=== PATIENT | female | born 1960 | race Caucasian/White ===

== ENCOUNTER 2016-04-04 17:49 | Emergency (ER) | payer BC ==
[2016-04-04 18:52] VITALS: BP 128/79
--- NOTE | 2016-04-04 19:36 | UC ---
Throat Pain/Nasal Petey HPI - HPI Summary HPI Summary: 55 year old female with complaints of headache, sinus pain and pressure stuffy runny nose, and cough. Denies fever or chills. Hx of sinus infections 1 - 2 a year She has stopped taking her methotrexate for RA when she became ill 5 days ago - History of Current Complaint Chief Complaint: UCRespiratory Stated Complaint: POSSIBLE SINUS INFECTION Time Seen by Provider: 04/04/16 19:21 Hx Obtained From: Patient ?: No Onset/Duration: Gradual Onset, Lasting Days - 5-6, Worse Since - last 2 days Severity: Moderate Cough: Nonproductive Associated Signs & Symptoms: Positive: Dysphagia, Sinus Discomfort, Nasal Discharge, Fever. Negative: FB Sensation, Drooling, Wheezing, Hoarseness, Vomiting, Rash - Epiglottits Risk Factors Epiglottis Risk Factors: Negative - Allergies/Home Medications Allergies/Adverse Reactions: Allergies Allergy/AdvReac Type Severity Reaction Status Date / Time No Known Allergies Allergy Verified 04/04/16 18:51 Home Medications: Home Medications Solifenacin(NF) [Vesicare(NF)] 5 mg PO DAILY 04/04/16 [History Confirmed ] PMH/Surg Hx/FS Hx/Imm Hx Previously Healthy: Yes Endocrine History Of: Denies: Diabetes Cardiovascular History Of: Denies: Cardiac Disorders Respiratory History Of: Denies: Asthma Cancer History Of: Denies: Breast Cancer - Surgical History Surgical History: None - Family History Known Family History: Positive: Hypertension Negative: Diabetes - Social History Occupation: Employed Full-time Lives: With Family Alcohol Use: None Substance Use Type: None Smoking Status (MU): Former Smoker Have You Smoked in the Last Year: No When Did the Patient Quit Smoking/Using Tobacco: 34 years ago Review of Systems Constitutional: Negative Skin: Negative Eyes: Negative ENT: Nasal Discharge, Other - sinus pain and pressure Respiratory: Cough Cardiovascular: Negative Gastrointestinal: Negative Genitourinary: Negative Motor: Negative Neurovascular: Negative Musculoskeletal: Negative Neurological: Headache Psychological: Negative All Other Systems Reviewed And Are Negative: Yes Physical Exam Triage Information Reviewed: Yes Appearance: No Pain Distress, Well-Nourished, Ill-Appearing - moderately Vital Signs: Initial Vital Signs Temp 97.9 F 04/04/16 18:49 Pulse 83 04/04/16 18:49 Resp 16 04/04/16 18:49 BP 128/79 04/04/16 18:49 Pulse Ox 99 04/04/16 18:49 Vital Signs Reviewed: Yes Eyes: Positive: Conjunctiva Clear. Negative: Discharge ENT: Positive: Hearing grossly normal, Pharynx normal, Nasal congestion, Nasal drainage - thick white, TMs normal, Other: - Moderate maxillary sinus pain and pressure with palpation. Negative: Tonsillar swelling Neck: Positive: Supple, Nontender, No Lymphadenopathy Respiratory: Positive: Lungs clear, Normal breath sounds Cardiovascular: Positive: RRR, No Murmur Musculoskeletal: Positive: Strength Intact, ROM Intact Neurological: Positive: Alert, Muscle Tone Normal Psychological: Positive: Age Appropriate Behavior - pleasant and cooperative Skin: Negative: rashes, breakdown Throat Pain/Nasal Course/Dx - Differential Dx/Diagnosis Differential Diagnosis/HQI/PQRI: Pharyngitis, Sinusitis, URI Provider Diagnoses: Sinusitis Discharge - Discharge Plan Condition: Stable Disposition: HOME Prescriptions: Amoxicillin/Clavulanate TAB* [Augmentin TAB 875*] 875 mg PO BID #20 tab Patient Education Materials: Sinusitis (ED) Additional Instructions: Follow up with your doctor if you are not feeling much better in 7 days
== END 2016-04-04 19:44 | disposition home or self-care (01) ==
LOC: UCCORT 17:49
DX: J32.9 Chronic sinusitis, unspecified (principal); Z87.891 Personal history of nicotine dependence
CPT/HCPCS: 99212; G0463

== ENCOUNTER 2017-11-12 09:10 | Emergency (ER) | payer BC ==
--- OUTSIDE RECORDS SUMMARY | 2017-11-12 09:28 | XMS REPORT ---
:1960 Author Organization [facility] O[facility] Address [address] [place] [address] Care Team Providers Name Role Phone Kathy Hernandez Unavailable Unavailable PROBLEMS Type Condition ICD9-CM Code [id number] Onset Condition SNOMED Code Code Dates Status Problem Postmenopausal N95.0 Active 07045206 bleeding Problem Unspecified urinary R32 Active 272960968 incontinence Problem Rheumatoid M05.9 Active 01722826 arthritis with rheumatoid factor, unspecified Problem Uterovaginal N81.4 Active 34645591 prolapse, unspecified Problem Anal spasm K59.4 Active 98043799 ALLERGIES Substance Reaction Event Type Date Status Myrbetriq hives Drug Allergy Oct, Active penicillin yeast infections Drug Allergy Oct, Active ENCOUNTERS Encounter [facility] Nov, OBGYN [place], [place] [id number] [facility] [address], [facility] [id number] [facility] 103 Oct, [facility] N95.0 [place], [place] [id number] [facility] 103 Oct, Postmenopausal bleeding OBGYN [facility] N95.0 [place], [place] [id number] [facility] 103 Sep, OBGYN [place] [id number] [facility] 103 Sep, Encounter for gynecological OBGYN [facility] examination (general) [place], [place] [id number] (routine) without abnormal findings Z01.419 ; Unspecified urinary incontinence R32 ; Encounter for screening for malignant neoplasm of colon Z12.11 and Postmenopausal bleeding N95.0 [facility] 103 Aug, Unspecified urinary OBGYN [facility] incontinence R32 [place], [place] [id number] [facility] 103 Aug, Encounter for screening OBGYN [facility] mammogram for malignant [place], [place] [id number] neoplasm of breast Z12.31 [facility] 103 13 May, 2017 OBGYN [place], [place] [id number] [facility] 103 May, Frequency of micturition OBGYN [facility] R35.0 ; Other specified [place], [place] [id number] noninflammatory disorders of vagina N89.8 and Uterovaginal prolapse, unspecified N81.4 [facility] 103 Sep, Encounter for gynecological OBGYN [facility] examination (general) [place], [place] [id number] (routine) without abnormal findings Z01.419 ; Unspecified urinary incontinence R32 ; Encounter for screening mammogram for malignant neoplasm of breast Z12.31 and Encounter for screening for malignant neoplasm of colon Z12.11 [facility] 103 Apr, Unspecified urinary OBGYN [facility] incontinence [address] [place] [id number] [facility] 103 Feb, Unspecified urinary OBGYN [facility] incontinence [address] [id number] [facility] 103 Jan, Unspecified urinary OBGYN [facility] incontinence [address] [place] [id number] [facility] 103 Jan, [place]BGYN [place] [id number] [facility] 103 Jan, [place] [id number] [facility] 103 Dec, Unspecified urinary OBGYN [facility] incontinence [address] [id number] [facility] 103 10 Dec, [address] [facility] incontinence R32 [place], [place] [id number] [facility] 103 Dec, [place]BG[place], [place] [id number] [facility] 103 Sep, Unspecified urinary OBGYN [facility] incontinence R32 [place] [id number] [facility] 103 Sep, Unspecified urinary OBGYN [facility] incontinence R32 and [place], [place] [id number] Disorder of kidney and ureter, unspecified N28.9 [facility] 103 Aug, Encounter for gynecological OBGYN [facility] examination (general) [place], [place] [id number] (routine) with abnormal findings Z01.411 ; Encounter for screening for malignant neoplasm of cervix Z12.4 ; Encounter for screening mammogram for malignant neoplasm of breast Z12.31 ; Encounter for screening for malignant neoplasm of colon Z12.11 ; Unspecified urinary incontinence R32 and Uterovaginal prolapse, unspecified N81.4 [facility] 103 Apr, OBG[place] [id number] [facility] 103 Apr, Dysuria R30.0 [place] [id number] [facility] 103 Dec, [place] [id number] [facility] 103 Nov, Encounter for gynecological OBGYN [facility] examination (general) [place], [place] [id number] (routine) without abnormal findings Z01.419 [facility] 103 Nov, Other abnormal [facility] inconclusive findings on [place], [place] [id number] diagnostic imaging of breast R92.8 [facility] 103 14 Oct, 2014 PELVIC PAIN 625.9 [facility] Vulvitis NOS 616.10 [place], [place] [id number] [facility] 103 Aug, AB FINDINGS-BREAST NEC [facility] 793.89 [place] [id number] [facility] 103 Aug, [place] [id number] [facility] 103 Aug, ROUTINE RIDING COACH EXAMINATION OBGYN [facility] V72.31 ; PAP SMEAR W/O RIDING COACH [place], [place] [id number] EXAM V76.2 ; SCREEN MALIG NEOP-COLON V76.51 ; SCREEN MAMMOGRAM NEC V76.12 and Incontinence 788.[address] [place] Aug, [facility] [address] [place] [id number] [facility] 103 Aug, [place] [id number] [facility] [address] [place] [address] [place] Jul, Incontinence 788.[address] [facility] [address] [place] [id number] [facility] 103 Jan, [place]BGYN [place] [id number] [facility] 103 Jan, Cystocele, midline 618.01 [place] [id number] [facility] 103 Dec, [place] [id number] [facility] 103 Dec, [place] [id number] [facility] [address] [place] Nov, Cystocele, midline 618.[address] [facility] [facility] [address] [place] [address], and Second degree uterine [place] [id number] prolapse 618.1 [facility] 103 Oct, [place], [place] [id number] [facility] 103 Oct, [place] [id number] [facility] 103 Sep, Dysuria [address]88.[address] [facility] degree uterine prolapse [place], [place] [id number] 618.1 [facility] 103 Sep, [place] [id number] [facility] 103 Sep, [place] [id number] [facility] 103 Sep, Urinary tract infection NOS OBGYN [facility] 599.0 [place] [id number] [facility] 103 Aug, [place] [id number] [facility] 103 Aug, [place] [id number] [facility] 103 Aug, URINARY INCONTINENCE NOS OBGYN [facility] 788.30 ; Cystocele, midline [place], [place] [id number] 618.01 and Second degree uterine prolapse 618.1 [facility] 103 Aug, [facility]INARY INCONTINENCE NOS [facility] 788.30 ; Cystocele, midline [place], [place] [id number] 618.01 and Second degree uterine prolapse 618.1 [facility] 103 Aug, FEM STRESS INCONTINENCE OBGYN [facility] 625.6 [place] [id number] [facility] 103 Jul, URINARY INCONTINENCE NOS OBGYN [facility] 788.30 [place], [place] [id number] [facility] 103 Jul, ROUTINE RIDING COACH EXAMINATION OBGYN [facility] V72.31 ; PAP SMEAR W/O RIDING COACH [place], [place] [id number] EXAM V76.2 ; SCREEN MALIG NEOP-COLON V76.51 ; SCREEN MAMMOGRAM NEC V76.12 and Incontinence 788.30 [facility] 103 Feb, [place]BG[place] [id number] [facility] 103 Feb, Flushing 782.62 [place]YN [place], [place] [id number] [facility] 103 Feb, [place] [id number] [facility] 103 Jan, [place] [id number] [facility] 103 Jan, [place] [id number] [facility] 103 Jan, [place] [id number] [facility] Oct, [place] [id number] [facility] 103 Jul, ROUTINE RIDING COACH EXAMINATION OBGYN [facility] V72.31 ; PAP SMEAR W/O RIDING COACH [place], [place] [id number] EXAM V76.2 and SCREEN MAMMOGRAM NEC V76.12 [facility] 103 Jul, PELVIC PAIN 625.9 ; ABN OBGYN 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 FINDINGS- ORGANS 793.5 [place] [id number] [facility] 103 Apr, [place]BGYN [place] [id number] [facility] 103 Mar, OBGYN [place], [place] [id number] [facility] 103 Mar, [place] [id number] [facility] 103 15 Mar, 2012 PELVIC PAIN 625.9 ; ABN OBGYN 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 FINDINGS- ORGANS 793.5 [place] [id number] [facility] 103 Mar, PELVIC PAIN 625.9 [place], [place] [id number] [facility] 103 Jul, [place], [place] [id number] [facility] 103 Jul, ROUTINE RIDING COACH EXAMINATION OBGYN [facility] V72.31 ; PAP SMEAR W/O RIDING COACH [place], [place] [id number] EXAM V76.2 and SCREEN MALIG NEOP-COLON V76.51 [facility] 103 Jul, [place] [id number] [facility] 103 June, [place] [id number] [facility] 103 May, [place] [id number] [facility] 103 May, [place] [id number] [facility] 103 Apr, [place] [id number] [facility] 103 Apr, OBG[place] [id number] [facility] 103 Apr, Cystocele NOS w/o mention [facility] of uterine prolapse 618.01 [place], [place] [id number] ; Premenstrual syndrome 625.4 and Urinary urgency 788.63 [facility] 103 Feb, [place] [id number] [facility] 103 Feb, [place] [id number] [facility] 103 Feb, [place] [id number] [facility] 103 Jan, PELVIC PAIN 625.9 and [facility] Premenstrual syndrome 625.4 [place], [place] [id number] [facility] 103 Jan, [place] [id number] [facility] 103 Jan, PELVIC PAIN 625.9 and [facility] Premenstrual syndrome 625.4 [place], [place] [id number] [facility] 103 Jan, [place] [id number] [facility] 103 Nov, VAGINAL DISCHARGE 623.5 and [facility] 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 [place], [place] [id number] [facility] 103 Jul, ROUTINE RIDING COACH EXAMINATION [facility] V72.31 [place] [id number] [facility] 103 May, [place] [id number] [facility] 103 Dec, [place] [id number] [facility] 103 Oct, [place] [id number] [facility] 103 Jul, [place] [id number] [facility] 103 Jul, ROUTINE RIDING COACH EXAMINATION [facility] V72.31 ; CERVICAL [place], [place] [id number] DYSPLASIA, MILD (SERAFIN I) 622.11 ; Urinary urgency 788.63 and Premenstrual syndrome 625.4 [facility] 103 May, OBN [place] [id number] [facility] 103 May, URINARY INCONTINENCE NOS [facility] 788.30 and CONTRACEPT PILL [place], [place] [id number] SURVEILL V25.41 [facility] 103 Mar, Urinary frequency 788.[address] [facility] and Hematuria, unspecified [place], [place] [id number] 599.70 [facility] 103 Jan, [place] [id number] [facility] 103 Dec, CERVICAL DYSPLASIA, MILD [facility] (SERAFIN I) 622.11 ; Urinary [place], [place] [id number] urgency 788.63 and Premenstrual syndrome 625.4 [facility] 103 Oct, [place] [id number] [facility] 103 Aug, Vaginitis NOS 616.10 [place] [id number] [facility] 103 Aug, [place] [id number] [facility] 103 Jul, [place] [id number] [facility] 103 Jul, CERVICAL DYSPLASIA, MILD [facility] (SERAFIN I) 622.11 and Urinary [place], [place] [id number] urgency 788.63 [facility] 103 Jul, PAP SMEAR CERVIX W LGSIL [facility] 795.03 [place] [id number] [facility] 103 June, CERVICAL DYSPLASIA, MILD [facility] (SERAFIN I) 622.11 [place] [id number] [facility] 103 May, [place], [place] [id number] [facility] 103 Mar, ROUTINE RIDING COACH EXAMINATION [facility] V72.31 ; CERVICAL [place], [place] [id number] DYSPLASIA, MILD (SERAFIN I) 622.11 and Urinary urgency 788.63 [facility] 103 Dec, CERVICAL DYSPLASIA, MILD [facility] (SERAFIN I) 622.11 ; PELVIC [place], [place] [id number] PAIN 625.9 ; Urinary urgency 788.63 and 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63 [facility] 103 24 Jul, 2007 Ovarian cyst NOS 620.2 ; [facility] CERVICAL DYSPLASIA, MILD [place] [id number] (SERAFIN I) 622.11 and Premenstrual syndrome 625.4 [facility] 103 Jul, PELVIC PAIN 625.9 and [facility] Ovarian cyst NOS 620.2 [place], [place] [id number] [facility] 103 28 Jun, 2007 OBG[place] [id number] [facility] 103 June, [place] [id number] [facility] 103 30 May, 2007 PELVIC PAIN 625.9 ; OBGYN [facility] Menometrorrhagia 626.2 ; [place], [place] [id number] Ovarian cyst NOS 620.2 and CERVICAL DYSPLASIA, MILD (SERAFIN I) 622.11 [facility] 103 14 May, 2007 Ovarian cyst NOS 620.2 [facility] PELVIC PAIN 625.9 [place] [id number] [facility] 103 08 May, 2007 Mild dysplasia of cervix [facility] 622.11 and Ovarian cyst NOS [place], [place] [id number] 620.2 [facility] 103 04 Mar, 2007 Menometrorrhagia 626.2 and [facility] CERVICAL DYSPLASIA, MILD [place], [place] [id number] (SERAFIN I) 622.11 [facility] [address] [place], 17 Feb, 2007 [facility] [id number] [facility] 103 16 Feb, 2007 PELVIC PAIN 625.[address] [facility] Ovarian cyst NOS 620.2 [place], [place] [id number] [facility] 103 15 Feb, 2007 Menometrorrhagia 626.2 and [facility] PELVIC PAIN 625.9 [place] [id number] [facility] 103 13 Dec, 2006 Lichen simplex chronicus [facility] 698.3 [place], [place] [id number] [facility] 103 Dec, [place] [id number] [facility] 103 Dec, [facility]rh[address]ia 626.[address] CERVICAL DYSPLASIA, MILD [place], [place] [id number] (SERAFIN I) 622.11 [facility] 103 Nov, Menometrorrhagia 626.2 and [facility] ABN FINDINGS- ORGANS [place], [place] [id number] 793.5 [facility] 103 Nov, ABN FINDINGS- ORGANS [facility] 793.5 ; Menometrorrhagia [place], [place] [id number] 626.2 and PELVIC PAIN 625.9 [facility] 103 Nov, Menometrorrhagia 626.2 [place] [id number] [facility] 103 Nov, [place] [id number] [facility] 103 Nov, Ovarian cyst NOS 620.2 ; [facility] Menometrorrhagia 626.2 and [place], [place] [id number] PELVIC PAIN 625.9 [place] [facility] 103 Nov, CERVICAL DYSPLASIA, MILD [facility] (SERAFIN I) 622.11 [place], [place] [id number] [facility] 103 Oct, PELVIC PAIN 625.9 ; Mild [facility] dysplasia of cervix 622.11 [place], [place] [id number] ; Ovarian cyst NOS 620.2 ; Menometrorrhagia 626.2 and Pruritus of genital organs 698.1 [facility] 103 Aug, Telangiectasia, [facility] telangiectasis 448.9 [place] [id number] [facility] 103 June, Telangiectasia, [facility] telangiectasis 448.9 [place], [place] [id number] [facility] 103 May, Telangiectasia, [facility] telangiectasis 448.9 [place], [place] [id number] [facility] 103 Apr, Cervical dysplasia, mild OBGYN [facility] 622.11 [place], [place] [id number] [facility] 103 Apr, Telangiectasia, OBGYN [facility] telangiectasis 448.9 [place], [place] [id number] [facility] 103 13 Apr, 2006 PAP SMEAR ABN-(ASC-H ) OBGYN [facility] 795.02 [place] [id number] [facility] 103 16 Mar, 2006 ROUTINE RIDING COACH EXAMINATION OBGYN [facility] V72.31 [place], [place] [id number] [facility] 103 Sep, PELVIC PAIN 625.9 OBGYN [place] [id number] [facility] 103 Sep, PELVIC PAIN 625.9 and Cyst OBGYN [facility] fallopian tube 620.8 [place], [place] [id number] [facility] 103 Aug, OBGYN [place] [id number] [facility] 103 Aug, PELVIC PAIN 625.9 and Cyst OBGYN [facility] fallopian tube 620.8 [place], [place] [id number] [facility] 103 Aug, PELVIC PAIN 625.9 OBGYN [place] [id number] [facility] 103 Aug, PELVIC PAIN 625.9 [place] [id number] [facility] 103 Aug, PELVIC PAIN 625.9 OBGYN [place], [place] [id number] [facility] 103 Jul, PELVIC PAIN 625.9 OBGYN [place], [place] [id number] IMMUNIZATIONS No Known Immunizations SOCIAL HISTORY Never Assessed REASON FOR REFERRAL FUNCTIONAL STATUS PLAN OF CARE Activity Details Follow Up Needs US prior to surgery, As scheduled Reason: Pending Test URINE CULTURE Pending Test UA RFX MICRO & CULTURE II VITAL SIGNS Height 66 in 2017-10-23 Weight 148 lbs 2017-10-23 BMI 23.89 kg/m2 2017-10-23 Blood pressure systolic 122 mm Hg 2017-10-23 Blood pressure diastolic 70 mm Hg 2017-10-23 MEDICATIONS Medication Instructions Dosage Frequency Start End Duration Status Date Date methotrexate 2.5 orally once a week 8 tab(s) 30 day(s) Active mg Cytotec 200 mcg orally 1 tab at 1 tab(s) Oct, Active dinner night 2018 before procedure, 1 tab at bedtime night before procedure, 1 tab at 6 AM day of procedure folic acid 1 mg orally once a day 1 tab(s) 24h 30 day(s) Active Humira Pen 40 subcutaneously 0 mL 30 day(s) Active mg/0.8 mL every 2 weeks VESIcare 5 mg orally once a day 1 tab(s) 24h 30 day(s) Active PROCEDURES No Known procedures RESULTS No Results REASON FOR VISIT presurgical counseling Insurance Providers [employer] Member Patient Patient Patient Patient Patient Subscriber Subscriber Subscriber Group Insurance Plan Plan Plan Plan ID Relationship Address Phone Name Date of ID Name Date of No Type Insurance Insurance Insurance Coverage to Subscriber Address Phone Name Dates Cigna [phone] [employer] self [place] [id number] [facility] [address] [place] [address] [place] self [place] [id number] [place] [id number] [phone] [facility] self [place] [id number] [place] [address] [facility] [address] [place] [phone] [employer] self [place] [id number] [place] [phone] MEDICAL (GENERAL) HISTORY Type Description Date Medical History One Kidney (right) Medical History RA Surgical History BTL Surgical History hysteroscopy, D&C, polypectomy, Thermachoice 03/06/07 Surgical History laparoscopic ELICIA and ovarian cystectomy 08/23 Surgical History US guided hysteroscopy/D&C 04-30-12 Surgical History colonoscopy 10/2013 Hospitalization History childbirth
--- OUTSIDE RECORDS SUMMARY | 2017-11-12 09:28 | XMS REPORT ---
:[address] [facility] O[facility] Address [address] [place] [address] Care Team Providers Name Role Phone Paul Echavarria Unavailable Unavailable PROBLEMS Type Condition ICD9-CM Code ZKY93-PM Onset Condition SNOMED Code Code Dates Status Problem Stricture and N88.2 Active 11698997 stenosis of cervix uteri Problem Postmenopausal N95.0 Active 46732086 bleeding Problem Anal spasm K59.4 Active 98690511 Problem Rheumatoid M05.9 Active 30064379 arthritis with rheumatoid factor, unspecified Problem Unspecified urinary R32 Active 932486315 incontinence Problem Uterovaginal N81.4 Active 18314502 prolapse, unspecified ALLERGIES No Information ENCOUNTERS Encounter Location Date Diagnosis [facility] Nov, OBGYN [place] [id number] [facility] [address], Oct, Postmenopausal bleeding Medical [facility] [id number] N95.0 and Stricture and stenosis of cervix uteri N88.2 [facility] Oct, Postmenopausal bleeding OBGYN [facility] N95.0 [place] [id number] [facility] 103 Oct, [facility] N95.0 [place] [id number] [facility] Sep, O[place], [place] [id number] [facility] 103 Sep, Encounter for gynecological OBGYN [facility] examination (general) [place], [place] [id number] (routine) without abnormal findings Z01.419 ; Unspecified urinary incontinence R32 ; Encounter for screening for malignant neoplasm of colon Z12.11 and Postmenopausal bleeding N95.0 [facility] Aug, Unspecified urinary OBGYN [facility] incontinence R32 [place], [place] [id number] [facility] 103 Aug, Encounter for screening OBGYN [facility] mammogram for malignant [place], [place] [id number] neoplasm of breast Z12.31 [facility] 103 May, OBG[place] [id number] [facility] 103 May, Frequency of micturition OBGYN [facility] R35.0 ; Other specified [place], [place] [id number] noninflammatory disorders of vagina N89.8 and Uterovaginal prolapse, unspecified N81.4 [facility] 103 Sep, Encounter for gynecological OBGYN [facility] examination (general) [place], [place] [id number] (routine) without abnormal findings Z01.419 ; Unspecified urinary incontinence R32 ; Encounter for screening mammogram for malignant neoplasm of breast Z12.31 and Encounter for screening for malignant neoplasm of colon Z12.11 [facility] Apr, Unspecified urinary OBGYN [facility] incontinence [address] [place] [id number] [facility] 103 Feb, Unspecified urinary OBGYN [facility] incontinence [address] [id number] [facility] 103 Jan, Unspecified urinary OBGYN [facility] incontinence [address] [place] [id number] [facility] 103 Jan, [place]BGYN [place] [id number] [facility] Jan, [place] [id number] [facility] 103 Dec, Unspecified urinary OBGYN [facility] incontinence R32 [place], [place] [id number] [facility] 103 10 Dec, 2015 Unspecified urinary OBGYN [facility] incontinence R32 [place], [place] [id number] [facility] 103 Dec, [place] [id number] [facility] 103 Sep, Unspecified urinary OBGYN [facility] incontinence R32 [place] [id number] [facility] 103 Sep, Unspecified urinary OBGYN [facility] incontinence R32 and [place], [place] [id number] Disorder of kidney and ureter, unspecified N28.9 [facility] 103 Aug, Encounter for gynecological OBGYN [facility] examination (general) [place], [place] [id number] (routine) with abnormal findings Z01.411 ; Encounter for screening for malignant neoplasm of cervix Z12.4 ; Encounter for screening mammogram for malignant neoplasm of breast Z12.31 ; Encounter for screening for malignant neoplasm of colon Z12.11 ; Unspecified urinary incontinence R32 and Uterovaginal prolapse, unspecified N81.4 [facility] Apr, [place] [id number] [facility] 103 Apr, Dysuria R30.0 [place] [id number] [facility] 103 Dec, [place] [id number] [facility] 103 Nov, Encounter for gynecological OBGYN [facility] examination (general) [place], [place] [id number] (routine) without abnormal findings Z01.419 [facility] 103 Nov, Other abnormal and [facility] inconclusive findings on [place], [place] [id number] diagnostic imaging of breast R92.8 [facility] 103 14 Oct, 2014 PELVIC PAIN 625.9 and OBGYN [facility] Vulvitis NOS 616.10 [place], [place] [id number] [facility] Aug, AB F[facility]INGS-BREAST NEC [facility] 793.89 [place], [place] [id number] [facility] 103 Aug, [place] [id number] [facility] 103 Aug, ROUTINE BULK SUGAR HANDLER EXAMINATION [facility] V72.31 ; PAP SMEAR W/O BULK SUGAR HANDLER [place], [place] [id number] EXAM V76.2 ; SCREEN MALIG NEOP-COLON V76.51 ; SCREEN MAMMOGRAM NEC V76.12 and Incontinence 788.[address] Aug, [facility] [address] [place], [place] [id number] [facility] 103 Aug, [place] [id number] [facility] Jul, Incontinence [address] [place], [place] [id number] [facility] Jan, [place] [id number] [facility] 103 Jan, Cystocele, midline 618.01 [place] [id number] [facility] 103 Dec, [place] [id number] [facility] 103 Dec, [place] [address] [facility] Nov, Cystocele, midline [address] [place] [address], and Second degree uterine [place] [id number] prolapse 618.1 [facility] 103 16 Oct, 2013 [place] [id number] [facility] 103 Oct, [place] [id number] [facility] 103 Sep, Dysuria 788.1 and Second OBGYN [facility] degree uterine prolapse [place], [place] [address] 618.1 [facility] 103 Sep, [place], [place] [id number] [facility] 103 Sep, [place] [address] [facility] 103 Sep, Urinary tract infection NOS OBGYN [facility] 599.0 [place] [id number] [facility] 103 Aug, [place] [id number] [facility] Aug, [place] [id number] [facility] 103 Aug, URINARY INCONTINENCE NOS OBGYN [facility] 788.30 ; Cystocele, midline [place], [place] [id number] 618.01 and Second degree uterine prolapse 618.1 [facility] 103 Aug, URINARY INCONTINENCE NOS [facility] 788.30 ; Cystocele, midline [place], [place] [id number] 618.01 and Second degree uterine prolapse 618.1 [facility] 103 Aug, FEM STRESS INCONTINENCE OBGYN [facility] 625.6 [place], [place] [id number] [facility] 103 Jul, URINARY INCONTINENCE NOS OBGYN [facility] 788.30 [place], [place] [id number] [facility] 103 Jul, ROUTINE BULK SUGAR HANDLER EXAMINATION OBGYN [facility] V72.31 ; PAP SMEAR W/O BULK SUGAR HANDLER [place], [place] [id number] EXAM V76.2 ; SCREEN MALIG NEOP-COLON V76.51 ; SCREEN MAMMOGRAM NEC V76.12 and Incontinence 788.30 [facility] 103 Feb, [place] [id number] [facility] Feb, Flushing 782.62 O[place]YN [place] [id number] [facility] 103 Feb, [place]BG[place] [address] [facility] 103 Jan, [place] [id number] [facility] 103 Jan, [place] [id number] [facility] 103 Jan, OBGYN [place], [place] [id number] [facility] 103 Oct, OBG[place] [id number] [facility] 103 Jul, ROUTINE BULK SUGAR HANDLER EXAMINATION OBGYN [facility] V72.31 ; PAP SMEAR W/O BULK SUGAR HANDLER [place], [place] [id number] EXAM V76.2 and SCREEN MAMMOGRAM NEC V76.12 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 [facility] [address] [place], Apr, [facility] [id number] [facility] 103 Apr, PELVIC PAIN 625.9 and ABN OBGYN [facility] FINDINGS- ORGANS 793.5 [place], [place] [id number] [facility] 103 Apr, [place] [address] [facility] 103 24 Mar, 2012 [place] [id number] [facility] 103 Mar, [place] [id number] [facility] 103 15 Mar, 2012 PELVIC PAIN 625.9 ; ABN OBGYN [facility] FINDINGS- ORGANS 793.5 [place], [place] [address] and 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 [facility] 103 12 Mar, 2012 PELVIC PAIN 625.9 and ABN OBGYN [facility] FINDINGS- ORGANS 793.5 [place], [place] [id number] [facility] 103 Mar, PELVIC PAIN 625.9 [place] [address] [facility] 103 Jul, [place] [address] [facility] 103 Jul, ROUTINE BULK SUGAR HANDLER EXAMINATION OBGYN [facility] V72.31 ; PAP SMEAR W/O BULK SUGAR HANDLER [place] [id number] EXAM V76.2 and SCREEN MALIG NEOP-COLON V76.51 [facility] Jul, [place] [id number] [facility] 103 June, [place] [id number] [facility] 103 May, [place] [address] [facility] 103 May, [place] [id number] [facility] 103 Apr, [place] [address] [facility] 103 Apr, [place] [address] [facility] 103 Apr, Cystocele NOS w/o mention [facility] of uterine prolapse 618.01 [place], [place] [id number] ; Premenstrual syndrome 625.4 and Urinary urgency 788.63 [facility] Feb, [place] [id number] [facility] Feb, [place] [address] [facility] Feb, [place] [address] [facility] 103 Jan, PELVIC PAIN 625.9 [facility] Premenstrual syndrome 625.4 [place], [place] [id number] [facility] Jan, [place] [address] [facility] 103 Jan, PELVIC PAIN 625.9 and OBGYN [facility] Premenstrual syndrome 625.4 [place], [place] [address] [facility] Jan, [place] [id number] [facility] 103 Nov, VAGINAL DISCHARGE 623.5 and [facility] 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 [place], [place] [id number] [facility] 103 Jul, ROUTINE BULK SUGAR HANDLER EXAMINATION [facility] V72.31 [place], [place] [id number] [facility] May, [place] [address] [facility] 103 Dec, [place] [id number] [facility] Oct, [place] [id number] [facility] Jul, [place] [id number] [facility] 103 Jul, ROUTINE BULK SUGAR HANDLER EXAMINATION [facility] V72.31 ; CERVICAL [place], [place] [id number] DYSPLASIA, MILD (SERAFIN I) 622.11 ; Urinary urgency 788.63 and Premenstrual syndrome 625.4 [facility] 103 May, [place] [id number] [facility] May, URINARY INCONTINENCE NOS OBGYN [facility] 788.30 and CONTRACEPT PILL [place], [place] [id number] SURVEILL V25.41 [facility] 103 Mar, Urinary frequency 788.41 OBN [facility] and Hematuria, unspecified [place], [place] [address] 599.70 [facility] 103 Jan, [place] [id number] [facility] 103 Dec, CERVICAL DYSPLASIA, MILD [facility] (SERAFIN I) 622.11 ; Urinary [place], [place] [id number] urgency 788.63 and Premenstrual syndrome 625.4 [facility] 103 Oct, [place] [id number] [facility] 103 Aug, Vaginitis NOS 616.10 [place] [id number] [facility] Aug, [place] [id number] [facility] Jul, [place] [id number] [facility] 103 Jul, CERVICAL DYSPLASIA, MILD [facility] (SERAFIN I) 622.11 and Urinary [place], [place] [id number] urgency 788.63 [facility] 103 Jul, PAP SMEAR CERVIX W LGSIL [facility] 795.03 [place], [place] [id number] [facility] 103 June, CERVICAL DYSPLASIA, MILD [facility] (SERAFIN I) 622.11 [place], [place] [id number] [facility] May, [place] [id number] [facility] 103 Mar, ROUTINE BULK SUGAR HANDLER EXAMINATION [facility] V72.31 ; CERVICAL [place], [place] [id number] DYSPLASIA, MILD (SERAFIN I) 622.11 and Urinary urgency 788.63 [facility] Dec, CERVICAL DYSPLASIA, MILD [facility] (SERAFIN I) 622.11 ; PELVIC [place], [place] [id number] PAIN 625.9 ; Urinary urgency 788.63 and 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 [facility] 103 Dec, [place] [id number] [facility] 10 Dec, 2007 PELVIC PAIN 625.9 [place] [id number] [facility] 04 Dec, 2007 CERVICAL DYSPLASIA, MILD [facility] (SERAFIN I) 622.11 ; PELVIC [place], [place] [id number] PAIN 625.9 and Urinary urgency 788.63 [facility] 103 15 Nov, 2007 CERVICAL DYSPLASIA, MILD OBN [facility] (SERAFIN I) 622.11 ; [place], [place] [id number] Premenstrual syndrome 625.4 and Urinary urgency 788.63 [facility] 103 24 Jul, 2007 Ovarian cyst NOS 620.2 ; [facility] CERVICAL DYSPLASIA, MILD [place], [place] [id number] (SERAFIN I) 622.11 and Premenstrual syndrome 625.4 [facility] 103 18 Jul, 2007 PELVIC PAIN 625.9 and OBGYN [facility] Ovarian cyst NOS 620.2 [place], [place] [id number] [facility] 103 June, [place] [id number] [facility] 103 June, [place] [id number] [facility] 103 May, PELVIC PAIN 625.9 ; OBGYN [facility] Menometrorrhagia 626.2 ; [place], [place] [id number] Ovarian cyst NOS 620.2 and CERVICAL DYSPLASIA, MILD (SERAFIN I) 622.11 [facility] 14 May, 2007 Ovarian cyst NOS 620.2 and OBGYN [facility] PELVIC PAIN 625.9 [place], [place] [id number] [facility] 103 May, Mild dysplasia [facility]ix [facility] 622.11 and Ovarian cyst NOS [place], [place] [id number] 620.2 [facility] 103 04 Mar, 2007 Menometrorrhagia 626.2 and OBGYN [facility] CERVICAL DYSPLASIA, MILD [place], [place] [id number] (SERAFIN I) 622.11 [facility] [address] [place], Feb, Medical [facility] [id number] [facility] 16 Feb, 2007 PELVIC PAIN 625.9 and OBGYN [facility] Ovarian cyst NOS 620.2 [place], [place] [id number] [facility] 103 15 Feb, 2007 Menometrorrhagia 626.2 and OBGYN [facility] PELVIC PAIN 625.9 [place], [place] [id number] [facility] 103 13 Dec, 2006 Lichen simplex chronicus OBGYN [facility] 698.3 [place], [place] [id number] [facility] 103 12 Dec, 2006 [place] [id number] [facility] 103 05 Dec, 2007 Menometrorrhagia 626.2 and [facility] CERVICAL DYSPLASIA, MILD [place], [place] [id number] (SERAFIN I) 622.11 [facility] 103 Nov, Menometrorrhagia 626.2 and OBGYN [facility] ABN FINDINGS- ORGANS [place], [place] [id number] 793.5 [facility] 103 Nov, ABN FINDINGS- ORGANS [facility] 793.5 ; Menometrorrhagia [place], [place] [id number] 626.2 and PELVIC PAIN 625.9 [facility] 103 Nov, Menometrorrhagia 626.2 [place] [id number] [facility] 103 Nov, [place] [id number] [facility] 103 Nov, Ovarian cyst NOS 620.2 ; [facility] Menometrorrhagia 626.2 and [place], [place] [id number] PELVIC PAIN 625.9 [facility] 103 Nov, CERVICAL DYSPLASIA, MILD [facility] (SERAFIN I) 622.11 [place], [place] [id number] [facility] 103 Oct, PELVIC PAIN 625.9 ; Mild [facility] dysplasia of cervix 622.11 [place], [place] [id number] ; Ovarian cyst NOS 620.2 ; Menometrorrhagia 626.2 and Pruritus of genital organs 698.1 [facility] 103 Aug, Telangiectasia, [facility] telangiectasis 448.9 [place], [place] [id number] [facility] 103 June, Telangiectasia, [facility] telangiectasis 448.9 [place], [place] [id number] [facility] 103 May, Telangiectasia, [facility] telangiectasis 448.9 [place], [place] [id number] [facility] 103 27 Apr, 2006 Cervical dysplasia, mild OBGYN [facility] 622.11 [place], [place] [id number] [facility] 103 Apr, Telangiectasia, OBGYN [facility] telangiectasis 448.9 [place], [place] [id number] [facility] 103 13 Apr, 2006 PAP SMEAR ABN-(ASC-H ) OBGYN [facility] 795.02 [place], [place] [id number] [facility] 103 16 Mar, 2006 ROUTINE BULK SUGAR HANDLER EXAMINATION OBN [facility] V72.31 [place], [place] [id number] [facility] 103 Sep, PELVIC PAIN 625.9 OBN [place] [id number] [facility] 103 Sep, PELVIC PAIN 625.9 and Cyst OBGYN [facility] fallopian tube 620.8 [place], [place] [id number] [facility] 103 Aug, [place] [id number] [facility] 103 Aug, PELVIC PAIN 625.9 and Cyst OBGYN [facility] fallopian tube 620.8 [place], [place] [id number] [facility] 103 Aug, PELVIC PAIN 625.9 OBG[place] [id number] [facility] 103 Aug, PELVIC PAIN 625.9 [place] [id number] [facility] 103 Aug, PELVIC PAIN 625.9 O[place] 6273926[address] [facility] 103 Jul, PELVIC PAIN 625.9 [place] [id number] IMMUNIZATIONS No Known Immunizations SOCIAL HISTORY Never Assessed REASON FOR REFERRAL FUNCTIONAL STATUS PLAN OF CARE VITAL SIGNS MEDICATIONS Unknown Medications PROCEDURES Procedure Date Ordered Result Body Site HYSTEROSCOPY, BIOPSY Oct 29, 2017 PARACERVICAL BLOCK Oct 29, 2017 US EXAM, PELVIC, LIMITED Oct 29, 2017 US GUIDE, INTRAOP Oct 29, 2017 RESULTS No Results REASON FOR VISIT US-guided Hysteroscopy & D+C Insurance Providers [facility] Health Member Patient Patient Patient Patient Patient Subscriber Subscriber Subscriber Group Insurance Plan Plan Plan Plan ID Relationship Address Phone Name Date of ID Name Date of No Type Insurance Insurance Insurance Coverage to Subscriber Address Phone Name Dates [place] [phone] [employer] self [place] [id number] [facility] [address] [place] [address] [employer] [phone] [employer] self [place]et[place] [id number] [address] [facility] [address] [place] [phone] [employer] self [place] [id number] [address] [facility] [phone] [facility] self [place]etria [id number] [place] [address] [facility] [id number] MEDICAL (GENERAL) HISTORY Type Description Date Medical History One Kidney (right) Medical History RA Surgical History BTL Surgical History hysteroscopy, D&C, polypectomy, Thermachoice 03/06/07 Surgical History laparoscopic ELICIA and ovarian cystectomy 08/23 Surgical History US guided hysteroscopy/D&C 04-30-12 Surgical History colonoscopy 10/2013 Hospitalization History childbirth
--- OUTSIDE RECORDS SUMMARY | 2017-11-12 09:28 | XMS REPORT ---
:1960 Author Name sound, ultra Care Team Providers Name Role Phone sound, ultra Unavailable Unavailable PROBLEMS Type Condition ICD9-CM Code [id number] Onset Condition SNOMED Code Code Dates Status Problem Stricture and N88.2 Active 64332014 stenosis of cervix uteri Problem Postmenopausal N95.0 Active 21792947 bleeding Problem Anal spasm K59.4 Active 57244069 Problem Rheumatoid M05.9 Active 61991706 arthritis with rheumatoid factor, unspecified Problem Unspecified urinary R32 Active 931106664 incontinence Problem Uterovaginal N81.4 Active 02902718 prolapse, unspecified ALLERGIES No Information ENCOUNTERS Encounter Location Date Diagnosis Formerly [facility] Nov, [place] [id number] [facility] [address], Postmenopausal bleeding [facility] [id number] N95.0 and Stricture and stenosis of cervix uteri N88.2 [facility] Oct, [facility] N[facility]0 [place] [id number] [facility] Oct, Postmenopausal bleeding OBGYN [facility] N95.0 [place], [place] [id number] [facility] Sep, [place] [id number] [facility] Sep, Encounter for gynecological OBGYN [facility] examination (general) [place], [place] [id number] (routine) without abnormal findings Z01.419 ; Unspecified urinary incontinence R32 ; Encounter for screening for malignant neoplasm of colon Z12.11 and Postmenopausal bleeding N95.0 [facility] Aug, Unspecified urinary OBGYN [facility] incontinence R32 [place] [id number] [place] [facility] Aug, Encounter for screening OBGYN [facility] mammogram for malignant [place], [place] [id number] neoplasm of breast Z12.31 [place] [facility] 13 May, 2017 [place] [id number] [place] [facility] May, Frequency of micturition OBGYN [facility] R35.0 ; Other specified [place], [place] [id number] noninflammatory disorders of vagina N89.8 and Uterovaginal prolapse, unspecified N81.4 [place] [facility] Sep, Encounter for gynecological OBGYN [facility] examination (general) [place], [place] [id number] (routine) without abnormal findings Z01.419 ; Unspecified urinary incontinence R32 ; Encounter for screening mammogram for malignant neoplasm of breast Z12.31 and Encounter for screening for malignant neoplasm of colon Z12.11 [place] [facility] Apr, Unspecified urinary OBGYN [facility] incontinence [address] [id number] [place] [facility] Feb, Unspecified urinary OBGYN [facility] incontinence [address] [id number] [place] [facility] Jan, Unspecified urinary OBGYN [facility] incontinence [address] [id number] [place] [facility] Jan, [place] [id number] [place] [facility] Jan, [place] [id number] [place] [facility] Dec, Unspecified urinary OBGYN [facility] incontinence [address] [id number] [place] [facility] Dec, Unspecified urinary OBGYN [facility] incontinence R32 [place] [id number] [place] [facility] Dec, [place] [id number] [place] [facility] Sep, Unspecified urinary OBGYN [facility] incontinence R32 [place] [id number] [place] [facility] Sep, Unspecified urinary OBGYN [facility] incontinence R32 and [place] [id number] Disorder of kidney and ureter, unspecified N28.9 [place] [facility] Aug, [facility] [place] [id number] (routine) with abnormal findings Z01.411 ; Encounter for screening for malignant neoplasm of cervix Z12.4 ; Encounter for screening mammogram for malignant neoplasm of breast Z12.31 ; Encounter for screening for malignant neoplasm of colon Z12.11 ; Unspecified urinary incontinence R32 and Uterovaginal prolapse, unspecified N81.4 [place] [facility] Apr, [place] [id number] [place] [facility] Apr, Dysuria R30.0 [place] [id number] [place] [facility] Dec, [place] [id number] [place] [facility] Nov, Encounter for gynecological OBGYN [facility] examination (general) [place], [place] [id number] (routine) without abnormal findings Z01.419 [place] [facility] Nov, Other abnormal [facility] findings on [place] [id number] diagnostic imaging of breast R92.8 [place] [facility] 14 Oct, 2014 PELVIC PAIN 625.[address] [facility] Vulvitis NOS 616.10 [place] [id number] [place] [facility] Aug, AB FINDINGS-BREAST NEC OBGYN [facility] 793.89 [place] [id number] [place] [facility] Aug, [place] [id number] [place] [facility] Aug, ROUTINE SUPERVISOR UNLOADING EXAMINATION OBGYN [facility] V72.31 ; PAP SMEAR W/O SUPERVISOR UNLOADING [place], [place] [id number] EXAM V76.2 ; SCREEN MALIG NEOP-COLON V76.51 ; SCREEN MAMMOGRAM NEC V76.12 and Incontinence 788.30 [place] [address] [place] [facility], [address] [place] [id number] [facility] Aug, [place] [id number] [facility] Jul, [facility]ence 788.30 [facility] [address] [place] [id number] [facility] Jan, [place] [id number] [place] [facility] Jan, Cystocele, midline 618.01 [place] [id number] [place] [facility] Dec, [place] [id number] [place] [facility] Dec, [place] [id number] [facility] [place] [facility] Nov, Cystocele, midline [address] [place] [address], and Second degree uterine [place] [id number] prolapse 618.1 [place] [facility] Oct, [place], [place] [id number] [place] [facility] Oct, [place] [id number] [place] [facility] Sep, Dysuria 788.[address] [facility] degree uterine prolapse [place] [id number] 618.1 [place] [facility] Sep, [place], [place] [id number] [place] [facility] Sep, [place] [id number] [place] [facility] Sep, Urinary tract infection NOS OBGYN [facility] 599.0 [place] [id number] [place] [facility] Aug, [place] [id number] [place] [facility] Aug, [place] [id number] [place] [facility] Aug, URINARY INCONTINENCE NOS OBGYN [facility] 788.30 ; Cystocele, midline [place], [place] [id number] 618.01 and Second degree uterine prolapse 618.1 [place] [facility] Aug, URINARY INCONTINENCE NOS [facility] 788.30 ; Cystocele, midline [place], [place] [id number] 618.01 and Second degree uterine prolapse 618.1 [place] [facility] Aug, FEM STRESS INCONTINENCE OBGYN [facility] 625.6 [place] [id number] [place] [facility] Jul, URINARY INCONTINENCE NOS OBGYN [facility] 788.30 [place] [id number] [place] [facility] Jul, ROUTINE SUPERVISOR UNLOADING EXAMINATION OBN [facility] V72.31 ; PAP SMEAR W/O SUPERVISOR UNLOADING [place], [place] [id number] EXAM V76.2 ; SCREEN MALIG NEOP-COLON V76.51 ; SCREEN MAMMOGRAM NEC V76.12 and Incontinence 788.30 [place] [facility] Feb, [place] [id number] [place] [facility] Feb, Flushing 782.62 [place] [id number] [place] [facility] Feb, [place], [place] [id number] [facility] Jan, [place], [place] [id number] [facility] Jan, [place] [id number] [facility] Jan, [place], [place] [id number] [facility] Oct, [place] [id number] [facility] Jul, ROUTINE SUPERVISOR UNLOADING EXAMINATION OBGYN [facility] V72.31 ; PAP SMEAR W/O SUPERVISOR UNLOADING [place], [place] [id number] EXAM V76.2 and SCREEN MAMMOGRAM NEC V76.12 [facility] Jul, PELVIC PAIN 625.9 ; ABN OBGYN 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 FINDINGS- ORGANS 793.5 [place] [id number] [facility] Apr, [place] [id number] [facility] Mar, [place] [id number] [place] [facility] 18 Mar, 2012 [place] [id number] [place] [facility] 15 Mar, 2012 PELVIC PAIN 625.9 ; ABN OBGYN 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 FINDINGS- ORGANS 793.5 [place] [id number] [place] [facility] 11 Mar, 2012 PELVIC PAIN 625.9 [place] [id number] [place] [facility] Jul, [place] [id number] [place] [facility] Jul, ROUTINE SUPERVISOR UNLOADING EXAMINATION OBGYN [facility] V72.31 ; PAP SMEAR W/O SUPERVISOR UNLOADING [place], [place] [id number] EXAM V76.2 and SCREEN MALIG NEOP-COLON V76.51 [place] [facility] Jul, [place] [id number] [place] [facility] June, [place] [id number] [place] [facility] May, [place] [id number] [place] [facility] May, [place] [id number] [place] [facility] Apr, [place] [id number] [place] [facility] Apr, [place] [id number] [place] [facility] Apr, Cystocele NOS w/o mention OBGYN [facility] of uterine prolapse 618.01 [place] [id number] ; Premenstrual syndrome 625.4 and Urinary urgency 788.63 [place] [facility] Feb, [place] [id number] [place] [facility] Feb, [place] [address] [place] [facility] Feb, [place] [id number] [place] [facility] Jan, PELVIC PAIN 625.9 [facility] Premenstrual syndrome 625.4 [place] [id number] [place] [facility] Jan, [place] [id number] [place] [facility] Jan, PELVIC PAIN 625.9 and [facility] Premenstrual syndrome 625.4 [place] [id number] [place] [facility] Jan, [place] [id number] [place] [facility] Nov, VAGINAL DISCHARGE 623.5 and [facility] 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 [place] [id number] [place] [facility] Jul, ROUTINE SUPERVISOR UNLOADING EXAMINATION [facility] V72.31 [place] [id number] [place] [facility] May, [place] [id number] [place] [facility] Dec, [place] [id number] [place] [facility] Oct, [place] [id number] [place] [facility] Jul, [place] [id number] [place] [facility] Jul, ROUTINE SUPERVISOR UNLOADING EXAMINATION [facility] V72.31 ; CERVICAL [place], [place] [id number] DYSPLASIA, MILD (SERAFIN I) 622.11 ; Urinary urgency 788.63 and Premenstrual syndrome 625.4 [place] [facility] May, [place] [id number] [place] [facility] May, URINARY INCONTINENCE NOS OBGYN [facility] 788.30 and CONTRACEPT PILL [place], [place] [id number] SURVEILL V25.41 [place] [facility] Mar, Urinary frequency 788.[address] [facility] and Hematuria, unspecified [place] [id number] 599.70 [place] [facility] Jan, [place] [id number] [place] [facility] Dec, CERVICAL DYSPLASIA, MILD [facility] (SERAFIN I) 622.11 ; Urinary [place] [id number] urgency 788.63 and Premenstrual syndrome 625.4 [place] [facility] Oct, [place] [id number] [place] [facility] Aug, Vaginitis NOS 616.10 [place], [place] [id number] [place] [facility] Aug, [place] [id number] [place] [facility] Jul, [place] [id number] [place] [facility] Jul, CERVICAL DYSPLASIA, MILD [facility] (SERAFIN I) 622.11 and Urinary [place] [id number] urgency 788.63 [place] [facility] Jul, PAP SMEAR CERVIX W LGSIL [facility] 795.03 [place] [id number] [place] [facility] June, CERVICAL DYSPLASIA, MILD [facility] (SERAFIN I) 622.11 [place] [id number] [place] [facility] May, [place] [id number] [place] [facility] Mar, ROUTINE SUPERVISOR UNLOADING EXAMINATION [facility] V72.31 ; CERVICAL [place] [id number] DYSPLASIA, MILD (SERAFIN I) 622.11 and Urinary urgency 788.63 [place] [facility] Dec, CERVICAL DYSPLASIA, MILD [facility] (SERAFIN I) 622.11 ; P[place]VIC [place] [id number] PAIN 625.9 ; Urinary urgency 788.63 and 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 (SERAFIN I) 622.11 ; [place] [id number] Premenstrual syndrome 625.4 and Urinary urgency 788.63 [place] [facility] Jul, Ovarian cyst NOS 620.2 ; [facility] CERVICAL DYSPLASIA, MILD [place] [id number] (SERAFIN I) 622.11 and Premenstrual syndrome 625.4 [place] [facility] 18 Jul, 2007 PELVIC PAIN 625.9 and [facility] Ovarian cyst NOS 620.2 [place] [id number] [place] [facility] 28 Jun, 2007 [place] [id number] [place] [facility] June, [place] [id number] [place] [facility] 30 May, 2007 PELVIC PAIN 625.9 ; OBGYN [facility] Menometrorrhagia 626.2 ; [place] [id number] Ovarian cyst NOS 620.2 and CERVICAL DYSPLASIA, MILD (SERAFIN I) 622.11 [place] [facility] 14 May, 2007 Ovarian cyst NOS 620.2 [facility] PELVIC PAIN 625.9 [place] [id number] [place] [facility] 08 May, 2007 Mild dysplasia of cervix [facility] 622.11 and Ovarian cyst NOS [place], [place] [id number] 620.2 [place] [facility] 04 Mar, 2007 Menometrorrhagia 626.[address] [facility] CERVICAL DYSPLASIA, MILD [place] [id number] (SERAFIN I) 622.11 [facility] [address] [place], 17 Feb, 2007 [facility] [id number] [facility] 16 Feb, 2007 PELVIC PAIN 625.9 and [facility] Ovarian cyst NOS 620.2 [place] [id number] [place] [facility] 15 Feb, 2007 Menometrorrhagia 626.2 and [facility] PELVIC PAIN 625.9 [place] [id number] [place] [facility] Dec, Lichen simplex chronicus [facility] 698.3 [place] [id number] [place] [facility] Dec, [place] [id number] [place] [facility] Dec, Menometrorrhagia 626.[address] [facility] CERVICAL DYSPLASIA, MILD [place] [id number] (SERAFIN I) 622.11 [place] [facility] Nov, Menometrorrhagia 626.[address] [facility] ABN FINDINGS- ORGANS [place] [id number] 793.5 [place] [facility] Nov, ABN FINDINGS- ORGANS [facility] 793.5 ; Menometrorrhagia [place] [id number] 626.2 and PELVIC PAIN 625.9 [place] [facility] Nov, Menometrorrhagia 626.2 [place] [id number] [place] [facility] Nov, [place] [id number] [facility] Nov, Ovarian cyst NOS 620.2 ; [facility] Menometrorrhagia 626.2 and [place] [id number] PELVIC PAIN 625.9 [facility] Nov, CERVICAL DYSPLASIA, MILD [facility] (SERAFIN I) 622.11 [place], [place] [id number] [facility] Oct, PELVIC PAIN 625.9 ; Mild [facility] dysplasia of cervix 622.11 [place], [place] [id number] ; Ovarian cyst NOS 620.2 ; Menometrorrhagia 626.2 and Pruritus of genital organs 698.1 [place] [facility] Aug, Telangiectasia, [facility] telangiectasis 448.9 [place] [id number] [place] [facility] June, Telangiectasia, [facility] telangiectasis 448.9 [place] [id number] [place] [facility] May, Telangiectasia, [facility] telangiectasis 448.9 [place], [place] [id number] [place] [facility] Apr, Cervical dysplasia, mild O[facility] [place] [address] 622.11 [place] [id number] [place] [facility] Apr, Telangiectasia, OBGYN [facility] telangiectasis 448.9 [place], [place] [id number] [place] [facility] Apr, PAP SMEAR ABN-(ASC-H ) [facility] 795.02 [place] [id number] [facility] Mar, ROUTINE SUPERVISOR UNLOADING EXAMINATION [facility] V72.31 [place] [id number] [place] [facility] Sep, PELVIC PAIN 625.9 O[place] [id number] [facility] Sep, PELVIC PAIN 625.9 and Cyst OBN [facility] fallopian tube 620.8 [place] [id number] [place] [facility] Aug, [place] [id number] [facility] Aug, PELVIC PAIN 625.9 and Cyst OBN [facility] fallopian tube 620.8 [place] [id number] [place] [facility] Aug, PELVIC PAIN 625.9 [place] [id number] [place] [facility] Aug, PELVIC PAIN 625.9 [place] [id number] [place] [facility] Aug, PELVIC PAIN 625.9 [place] [id number] [place] [facility] Jul, PELVIC PAIN 625.9 [place] [id number] IMMUNIZATIONS No Known Immunizations SOCIAL HISTORY Never Assessed REASON FOR REFERRAL FUNCTIONAL STATUS PLAN OF CARE VITAL SIGNS MEDICATIONS Unknown Medications PROCEDURES Procedure Date Ordered Result Body Site TRANSVAGINAL US, NON-OB Oct 23, 2017 RESULTS Name Result Date Reference Range Ultrasound : Pelvis REASON FOR VISIT pelvic US Insurance Providers [facility] Member Patient Patient Patient Patient Patient Subscriber Subscriber Subscriber Group Insurance Plan Plan Plan Plan ID Relationship Address Phone Name Date of ID Name Date of No Type Insurance Insurance Insurance Coverage to Subscriber Address Phone Name Dates [place] [phone] [place] [id number] [facility] [address] [place] [address] [facility] [address] [address] [facility] self [place] [id number] [place] [address] [facility] [address] [employer] [address] [employer] self [place] [id number] [facility] [address] [place] [phone] [place] self [place] [id number] [facility] [address] [place] [phone] MEDICAL (GENERAL) HISTORY Type Description Date Medical History One Kidney (right) Medical History RA Surgical History BTL Surgical History hysteroscopy, D&C, polypectomy, Thermachoice 03/06/07 Surgical History laparoscopic ELICIA and ovarian cystectomy 08/23 Surgical History US guided hysteroscopy/D&C 04-30-12 Surgical History colonoscopy 10/2013 Hospitalization History childbirth
--- OUTSIDE RECORDS SUMMARY | 2017-11-12 09:28 | XMS REPORT | Continuity of Care Document ---
:1960 Author Organization [facility] Address [address], [place] [id number] Phone Care Team Providers Name Role Phone Roopa Potter PA-C Unavailable Unavailable Allergies, Adverse Reactions, Alerts Substance Reaction Status penicillin G Active No Known Drug Allergies Active Medications Medication Instructions Dosage Effective Dates Status Comments (start - stop) folic acid 1 mg tablet TAKE 1 TABLET DAILY 1 MG - Active methotrexate sodium take 8 Tablet by oral 20 MG - Active 2.5 mg tablet route every week Humira Pen 40 mg/0.8 inject 0.8 milliliter - Active mL subcutaneous by subcutaneous route every 2 weeks prednisone 5 mg tablet take 1 tablet by oral - Active route every day as needed Aleve 220 mg capsule take 1-2 by Oral route - Active every bedtime Vesicare 5 mg tablet take 1 tablet by oral 5 MG - Active route every day OTC SUPPLEMENTS tumeric, seth - Active multivitamin Tab take 1 tablet by oral - Active route every day with food OTC SUPPLEMENTS Vit B12, fish oil - Active Problems Condition Effective Dates Clinical Status Comments (start - stop) 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 Other exterminator termite (current) drug therapy Generalized 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 Other exterminator termite (current) drug therapy Generalized 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 Generalized osteoarthritis Other exterminator termite (current) drug therapy Other prison (current) drug therapy 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 Other exterminator termite (current) drug therapy Generalized 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 Generalized osteoarthritis Other prison (current) drug therapy 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 Generalized osteoarthritis Other prison (current) drug therapy Fatigue 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 Generalized osteoarthritis Other exterminator termite (current) drug therapy 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 Other exterminator termite (current) drug therapy 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 Generalized osteoarthritis Other prison (current) drug therapy 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 Other exterminator termite (current) drug therapy Generalized 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 The mapped diagnosis code was Rheumatoid Arthritis, 714.0, added by Roopa Hardwick, with responsible provider Roopa RIVERA. Onset date 10/17/2011; last addressed on 12/16/2013. High risk drug monitoring - Active Mapped from [facility] status Chronic Conditions table on 06/28/2014 by the ICD9 to [employer]apping [employer]. 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 Onset date 10/17/2011; last addressed on 12/16/2013. Rheumatoid factor negative - Active Procedures Procedure Date No information Results Test Name Date and Time Measure Units Reference Range Abnormal Flag Status Comments No information Advance Directives Directive Yes / No Effective Date File Name No information Encounters Encounter Practice Location Reason(s) Diagnoses Date Provider Providers Description For Visit Copied on Encounter Arthritis Arthritis Sep-0 Informaat 6 LINNETTE [facility] 8 9094 PLLC, 5794 PLLC [facility], [place], [place], [id number], [id number], [place]. [place] tel:[phone] tel:[phone] Arthritis Arthritis RA w/o Escobar-0 McIlvain Specialist: Health Health rheumatoid 9-201 LINNETTE Blas. [facility] factor of 8 5794 [place] SALAZAR, PLLC, 5794 PLLC [facility] [address] [facility] sitesOther [facility], [place], prison [place], [place], [place], (current) [place], [address]. [place] therapyGeneral [id number], tel:[phone], ized [place]. [id number] [place] osteoarthritis tel:[phone] lting tel:[phone] Provider: Rolo Norris MD, [address] [facility] [address], [place], [address]. tel:[phone] ring Provider: Ness Perera MD, [address] [place] [address], [address]. tel:[phone] Arthritis Arthritis Augusto-0 McIlvain [facility] 6-201 LINNETTE Blas. [facility] 8 5794 PLLC, 5794 PLLC [facility], [place], [place], [place], [id number], [id number], [place]. [place] tel:[phone] tel:[phone] Arthritis Arthritis RA w/o Apr-3 McIlvain Specialist: [facility] rheumatoid 0-201 LINNETTE Blas. [facility] factor of 8 5794 [place] SALAZAR[facility], [facility] [address] [facility] sitesOther [facility], [place], exterminator termite [place], [place], [place], (current) [place], [address]. [place], therapy[place] [id number], tel:[phone], ized [place]. [id number] [place] osteoarthritis tel:[phone] lting tel:[phone] Provider: Rolo Norris MD, [address] [facility] [address], [place], [address]. tel:[phone] [facility] Provider: Ness Perera MD, [address] [place], [address]. tel:[phone] Arthritis Arthritis RA w/o McIlvain Specialist: [facility] rheumatoid 3-201 LINNETTE Blas. Reena Jean [facility] factor of 8 5794 [place] SALAZAR, PLLC, 5794 PLLC multiple [facility] [address] [facility] sitesGeneraliz [facility] [place], ed [place], [place], [place], [place], [address]. [place], Other long [id number], tel:[phone], term (current) [place]. [id number] [place] drug therapy tel:[phone] lting tel:[phone] Provider: [id number] Charles Norris MD, [address] [facility] [address], [place], [address]. tel:[phone] ring Provider: Ness Perera MD, [address] [place], [address]. tel:[phone] Arthritis Arthritis Other long Cliff-0 [facility] term (current) 8 LINNETTE Blas. [facility] drug therapyRA 8 5794 PLLC, 5794 PLLC w/o rheumatoid [facility] factor of [place], multiple sites [place], [place], [id number], [id number], [place]. [place] tel:[phone] tel:[phone] Arthritis Arthritis RA w/o McIlvain Specialist: [facility] rheumatoid 8-201 LINNETTE Blas. [facility]ena [facility] factor of 7 5794 [place] SALAZAR, PLLC, 5794 PLLC multiple [facility] [address] [facility] sitesOther [place], ., [place], exterminator termite [place], [place], [place], (current) [place], [address]. [place], therapy[place] [id number], tel:[phone], ized [place]. [id number] [place] osteoarthritis tel:[phone] lting tel:[phone] Provider: [id number] Charles Norris MD, [address] [place] [address], [place], [address]. tel:[phone] ring Provider: Ness Perera MD, [address] [place] [address], [address]. tel:[phone] Arthritis Arthritis RA w/o Nov- McIlvain Specialist: [facility] rheumatoid 6-201 LINNETTE Blas. [facility] factor of 7 5794 [place] SALAZAR, PLLC, [facility] [facility] [address] [facility] sitesGeneraliz [place], ., [place], ed [place], [place], [place], [place], [address]. [place], Other long [id number], tel:[phone], term (current) [place]. [id number] [place] drug therapy tel:[phone] lting tel:[phone] Provider: [id number] Norris MD, [address] [address], [place], [address]. tel:[phone] ring Provider: Ness Perera MD, [address] [place] [address], [address]. tel:[phone] Arthritis Arthritis RA w/o Warnoutcz Specialist: [facility] rheumatoid 7-201 MD Stevenson. [facility] Associates factor of 7 5794 [place] SALAZAR, PLLC, 5[address] [facility] [address] [facility] [place], [place], [place], [place], [place], [address]. [place], [id number], tel:[phone], [place]. [id number] [place] tel:[phone] lting tel:[phone] Provider: [id number] Norris MD, [address] [facility] [address], [place], [address]. tel:[phone] ring Provider: Ness Perera MD, [address] [place], [address]. tel:[phone] Arthritis Arthritis RA w/o June-2 McIlvain Specialist: [facility] rheumatoid 2-201 LINNETTE Blas. [facility]ena [facility] factor of 7 5794 [place] SALAZAR, PLLC, 5794 [facility] [place] [address] [facility], [place], ed [place], [place], [place], [place], [address]. [place], Other long [id number], tel:[phone], term (current) [place]. [id number] [place] drug tel:[phone] lting tel:[phone] therapyFatigue [id number] Provider: Rolo Norris, [address] [address], [place], [address]. tel:[phone] ring Provider: Ness Perera MD, [address] [place], [address]. tel:[phone] Arthritis Arthritis RA w/o Apr-2 McIlvain Specialist: [facility] rheumatoid 7-201 LINNETTE Blas. [facility] factor of 7 5794 [place] SALAZAR, PLLC, [facility] [address] [facility], [place], ed [place], [place], [place], [place], [address]. [place], Other long [id number], tel:[phone], term (current) [place]. [id number] [place] drug therapy tel:[phone] lting tel:[phone] Provider: [id number] Charles Norris, [address] [facility] [address], [place], [address]. tel:[phone] ring Provider: Ness Perera MD, [address] [place], [address]. tel:[phone] Arthritis Arthritis RA w/o Cliff-0 McIlvain Specialist: [facility] rheumatoid 5-201 LINNETTE Blas. [facility] factor of 7 5794 [place] SALAZAR PLLC, 5794 PLLMulu multiple [facility] [address] [facility] sitesOther [facility]., [place], prison [place], [place], [place], (current) [place], [address]. [place], therapy [id number], tel:[phone], [place]. [id number] [place] tel:[phone] lting tel:[phone] Provider: [id number] Charles Norris, [address] [facility] [address], [place], [address]. tel:[phone] [facility] Provider: Ness Perera MD, [address] [place] [address], [address]. tel:[phone] Arthritis Arthritis RA w/o Nov- McIlvain Specialist: [facility] rheumatoid 8-201 LINNETTE Blas. Reena [facility] factor of 6 5794 [place] SALAZAR, PLLC, 5794 [facility] [address] [facility] sitesGeneraliz [facility]., [place], ed [place], [place], [place], [place], [address]. [place], Other long [id number], tel:[phone], term (current) [place]. [id number] drug therapy tel:[phone] lting tel:[phone] Provider: [id number] Norris, [address] [facility] [address], [place], [address]. tel:[phone] [facility] Provider: Ness Perera MD, [address] [place], [address]. tel:[phone] Arthritis Arthritis RA w/o Sep-2 McIlvain Specialist: [facility] rheumatoid 4-201 LINNETTE Blas. Reena [facility] factor of 6 5794 [place] SALAZAR, PLLC, 5794 PLLC multiple [facility] [address] [facility] sitesOther [facility]., [place], prison [place], [place], [place], (current[place], [address]. [place], therapy[place] [id number], tel:[phone], ized [place]. [id number] [place] osteoarthritis tel:[phone] lting tel:[phone] Provider: [id number] Charles Norris, [address] [facility] [address], [place], [address]. tel:[phone] ring Provider: Ness Perera MD, [address] [place], [address]. tel:[phone] Arthritis Arthritis RA w/o Augusto-2 McIlvain Specialist: [facility] rheumatoid 4-201 LINNETTE Blas. Reena Jean [facility] factor of 6 5794 Jreicho SALAZAR, PLLC, 5[address] [facility] [address] [facility] sitesOther [facility], [place], exterminator termite [place], [place], [place], (current) [place], [address]. [place], [place] [id number], tel:[phone], [place]. [id number] [place] tel:[phone] lting tel:[phone] Provider: [id number] Norris, [address] [facility] [address], [place], [address]. tel:[phone] ring Provider: Ness Perera MD, [address] [place] [address], [address]. tel:[phone] Arthritis Arthritis RA w/o Apr-2 McIlvain Specialist: [facility] rheumatoid 2-201 LINNETTE Blas. [facility] Associates factor of 6 5794 [place] SALAZAR, PLLC, 5794 PLLC [facility] [address] [facility] sitesOther [facility], [place], prison [place], [place], [place], (current) [place], [address]. [place], therapyPlantar [id number], tel:[phone], fasciitis [place]. [id number] [place] tel:[phone] lting tel:[phone] Provider: [id number] Norris, [address] [facility] [address], [place], [address]. tel:[phone] ring Provider: Ness Perera MD, [address] [place], [address]. tel:[phone] Arthritis Arthritis RA w/o Mar-2 McIlvain Specialist: [facility] rheumatoid 6-201 LINNETTE Blas. [facility] factor of 6 5794 [place] SALAZAR, PLLC, [facility] [facility] [address] [facility] sitesOther [facility], [place], exterminator termite [place], [place], [place], (current) [place], [address]. [place], [place] [id number], tel:[phone], [place]. [id number] [place] tel:[phone] lting tel:[phone] Provider: Rolo Norris, [address] [address], [place], [address]. tel:[phone] ring Provider: Ness Perera MD, [address] [place], [address]. tel:[phone] Arthritis Arthritis RA w/o Cliff-0 McIlvain Specialist: [facility] rheumatoid 6-201 LINNETTE Blas. [facility] factor of 6 5794 [place] SALAZAR, PLLC, [address] [facility] [address] [facility] sitesOther [facility], [place], exterminator termite [place], [place], [place], (current) [place], [address]. [place], [place] [id number], tel:[phone], [place]. [id number] [place] tel:[phone] lting tel:[phone] Provider: [id number] Charles Norris, [address] [address], [place], [address]. tel:[phone] ring Provider: Ness Perera MD, [address] [place], [address]. tel:[phone] Arthritis Arthritis RA w/o Nov- McIlvain Specialist: [facility] rheumatoid 8-201 LINNETTE Blas. [facility] factor of 5 5794 [place] SALAZAR, PLLC, 5794 PLLC [facility] [address] [facility] sitesOther [place], [facility], [place], prison [place], [place], [place], (current) [place], [address]. [place], therapyAcute [id number], tel:[phone], [facility] [place]. [id number] [place] respiratory tel:[phone] lting tel:[phone] infection, 100282 Provider: [id number] unspecified Charles Norris, [address] [facility] [address], [place], [address]. tel:[phone] ring Provider: Ness Perera MD, [address] [place] [address], [address]. tel:[phone] Arthritis Arthritis Oct [facility] 4 LINNETTE Stephens. Provider: [facility] 2 5794 [facility], 5794 PLLC [facility], [facility], [place], [place], [place], [id number], b [place] 4 [id number], [place]. [place], [place] tel:[phone] [place], tel:[phone] [place], [address]. [address] tel:[phone] lting Provider: Charles Norris, [address] [address], [place], [address]. tel:[phone] ring Provider: Ness Perera MD, [address] [place], [address]. tel:[phone] Arthritis Arthritis [facility] 9 MD Stevenson. Provider: [facility] 1 5794 Ness Perera [facility], [address] [facility] Cherise SALAZAR, [address] [place] [address], [facility], [place], [place], [place], [place], [address]. [place], [id number], tel:[phone], [place]. [id number] [place] tel:[phone] tel:[phone] 139451 Family History Family Member Diagnosis Age At Onset Sister Immunizations Vaccine Date Status Comments Never had administered Source: Source Unspecified Never had administered Source: Source Unspecified Payers Payer name Insurance type Covered republican ID Authorization(s) Destiny [id number] Social History Type Description Quantity Date Captured Comments Alcohol Use Details Unknown Caffeine Use Details Unknown Tobacco Use Status Unknown Smoking Status Unknown Sex Female Vital Signs Date / Height Weight BMI Pulse Blood Temperature Respiratory Body Head BMI Pulse Inhaled Time: Rate Pressure Rate Surface Circumference percentile [place] Area No information Chief Complaint And Reason For Visit No information Reason For Referral Reason For Referral No information Plan Of Treatment Date Type Action Status Appointment Demetria Pitts BOOKED History Of Present Illness Encounter Date Complaint History Of Present Illness No information Functional Status Date Functional Assessment No information Medications Administered Medication Instructions Dosage Effective Dates (start - stop) Status Comments No information Instructions Date Instruction Additional Information Recommended and demonstrated range of motion and strengthening exercises for Plantar Fasciitis Discussed importance of holding DMARDs/ biologics if patient develops an infection and to notify the treating physician
--- OUTSIDE RECORDS SUMMARY | 2017-11-12 09:28 | XMS REPORT | Continuity of Care Document ---
:1960 External Reference #:[id number] Author Name Ness Perera M.D. Address [address] [place] [address] Care Team Providers Name Role Phone Aftab Franco JACOB Care Team Information Supervisory Forester Unavailable Payers Type Date Identification Numbers Payment Provider Subscriber Effective: Policy Number: [id number] [facility] Demetria Pitts 2012 PayID: [id number] [address] [place] [address] Advance Directives Description No Information Available Problems Date Description Provider Status Onset: 05/18/2011 Rheumatoid arthritis Aftab Franco HYDRAULIC TECHNICIAN Active Onset: 05/18/2011 Non-organic sleep disorder Aftab Franco HYDRAULIC TECHNICIAN Active Onset: 05/18/2011 Verruca vulgaris Aftab Franco HYDRAULIC TECHNICIAN Active Onset: 05/18/2011 Degeneration of lumbar intervertebral disc Aftab Franco HYDRAULIC TECHNICIAN Active Onset: 05/18/2011 Myalgia & Myositis Unspecified Aftab Franco HYDRAULIC TECHNICIAN Active Onset: 11/25/2014 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 Work Status Full-Time Employment ETOH Use Occasionally consumes alcohol Tobacco Use Start: Unknown End: Patient is a former SMOKED FOR 5 YEARS IN Unknown smoker LATE TEENS, QUIT WHEN 21 Allergies, Adverse Reactions, Alerts Date Description Reaction Status Severity Comments 05/18/2011 Penicillin RASH Active 05/18/2011 Ibuprofen EDEMA Inactive 05/18/2011 Naprosyn EDEMA Inactive Medications Medication Date Status Form Strength Qnty SIG Indications Ordering Provider Methotrexate 02/28/ Active Tablets 2.5mg 100ta 8 tab by mouth M05.40 [facility], 2018 bs every Keohlanden Olivarez, week-rheumatol Fredy ogy Folic Acid 02/28/ Active Tablets 1mg 90tab 1 by mouth M05.40 [facility], 2018 s every Ness Olivarez, day-Rheumatolo Fredy gy Vesicare 02/28/ Active Tablets 5mg 1 by mouth N39.46 [facility], 2018 every day Ness Olivarez M.D. Humira Pen 02/28/ Active PNKT 40mg/0.8ML inject M05.40 [facility], 2018 intramuscular brooklynn Sharp-rheumatol Fredy ogy Astepro / Active Solution 0.15% 60ml use 2 sprays J30.1 [facility], 0000 each in the Ahmad M., morning both M.DRosey nares J30.9 Ciprofloxacin HCL 03/21/ Hx Tablets 500mg 20tabs 1 by mouth M05.40 Ness Perera 2018 - twice a day M., M.D. 2017 Fluconazole 11/16/ Hx Tablets 100mg 14tabs tab one by B37.3 Ness Perera 2016 - mouth x14 days M., M.D. 2017 Ciprofloxacin HCL 11/16/ Hx Tablets 500mg 20tabs tab one by J01.80 Ness Perera 2016 - mouth twice a M., M.D. 2017 Demadex 10/20/ Hx Tablets 10mg 30tabs One PO qd R63.5 Ness Perera 2015 - M., M.D. 2017 Ciprofloxacin HCL 12/17/ Hx Tablets 500mg 20tabs tab one by J01.80 Ness Perera 2014 - mouth twice a M., M.D. 2015 No Active Unknown Medications 2014 - 2014 Gabapentin 06/24/ Hx Capsules 100mg 90caps tab 1 by mouth 724.3 Ness Perera 2014 - three times a M., M.D. 2014 Sulfamethoxazole/Tr 06/24/ Hx Tablets 800-16 20tabs tab one by 599.0 TreverNess means imethoprim DS 2014 - 0mg mouth twice a M., M.D. 2014 Clonazepam 06/22/ Hx Tablets 1mg 150tab 1 by mouth qhs 300.00 TreverNess means 2013 - s and 1 po q 6 M., M.D. 05/ hrs during day 2014 prn for anxiety Meclizine HCL 02/06/ Hx Tablets 25mg 30tabs 1 by mouth 386.11 TreverNess means 2012 - every 8 hours M., M.D. 02/16/ as needed 2012 Fluconazole 01/22/ Hx Tablets 150mg 2tabs tab one now june 112.1 Ness Perera 2012 - repeat in 5 M., M.D. 2012 Humira 06/20/ Hx Kit 40mg/0 Inj Q O W Per 714.0 TreverNess means 2012 - .8ML Rheum M., M.D. 2014 Folic Acid 03/18/ Hx Tablets 1mg 1 by mouth TreverNess means 2012 - every day M., M.D. 2014 Cinnamon 03/18/ Hx Capsules 500mg Tab 2 qd TreverNess means 2012 - M., M.D. 2014 Astepro 03/18/ Hx Solution 0.15% 1units 1 spray in each TreverNess means 2012 - nostril daily M., M.D. 2014 Colcrys 12/19/ Hx Tablets 0.6mg 60tabs take 2 tabs 274.9 TreverNess means 2011 - every day for 1 M., M.D. week, then take 2012 1 tab daily until swelling and pain decreases Indocin 12/19/ Hx Tablets 50mg 90tabs 1 three times a 274.9 Ness Perera 2011 - day and food M., M.D. 2012 Sulfasalazine Per 09/24/ Hx Tablets DR 500mg 1-3 Tabs bid 714.0 [facility] , Ahmad Rheum 2012 - M., M.D. 2012 729.1 Methotrexate Per 09/25/2011 - Hx Tablets 2.5mg 66tabs 6 tabs by 714.0 [facility], Rheum 11/25/2014 mouth Once Ahmad M., A Week M.D. 729.1 Tobradex 07/04/2011 - Hx Suspension 0.3-0.1% 10ml 2 drops 372.30 [facility], 07/11/2011 both Ahmad M., eyes M.D. three times a day Trazodone HCL 05/21/2011 - Hx Tablets 100mg 60tabs tab one 307.40 [facility] , 03/18/2012 or two Ahmad M., po po q M.D. hs Plaquenil - Hx Tablets 200mg 1 by [facility], 09/25/2011 mouth Ahmad M., twice a M.D. day Prednisone - Hx Tablets 5mg Tab [facility], 11/25/2014 One-Two Ahmad M., PO Q Am M.D. Per Rheum 10/06/12 Detrol LA - Hx Caps ER 24HR 4mg 1 by [facility], 11/25/2014 mouth Ahmad M., every M.D. day Beyaz - Hx Tablets 3-0.02-0.45 1 by [facility], 06/24/2014 1mg mouth Ahmad M., every M.D. day Humira Pen - Hx PNKT 40mg/0.8ML Per Unknown 06/24/2014 Rheum Immunizations CPT Code Status Date Vaccine Lot # [id number] Given 02/06/2013 Hep B Over 20 Yrs 30706 Given 02/06/2013 TDaP [id number] Refused 11/25/2014 Flu Vaccine [id number] Refused 03/18/2012 Flu Vaccine Vital Signs Date Vital Result Comment 11/11/2017 3:06pm BP Systolic 102 mmHg BP Diastolic 60 mmHg Height 65 inches 5'5" Weight 151.00 lb BMI (Body Mass Index) 25.1 kg/m2 Heart Rate 72 /min Respiratory Rate 16 /min 03/21/2017 4:05pm BP Systolic 110 mmHg BP Diastolic 58 mmHg Height 65 inches 5'5" Weight 150.00 lb BMI (Body Mass Index) 25.0 kg/m2 Heart Rate 70 /min Body Temperature 97.0 F Respiratory Rate 16 /min 11/16/2016 11:11am BP Systolic 118 mmHg BP Diastolic 62 mmHg Height 65 inches 5'5" Weight 157.00 lb BMI (Body Mass Index) 26.1 kg/m2 Heart Rate 64 /min Respiratory Rate 16 /min 10/21/2015 9:35am BP Systolic 124 mmHg BP Diastolic 76 mmHg Height 65 inches 5'5" Weight 166.00 lb BMI (Body Mass Index) 27.6 kg/m2 Heart Rate 80 /min Respiratory Rate 16 /min 12/17/2014 2:33pm BP Systolic 118 mmHg BP Diastolic 76 mmHg Height 65 inches 5'5" Weight 164.00 lb BMI (Body Mass Index) 27.3 kg/m2 Heart Rate 80 /min Body Temperature 97.0 F Respiratory Rate 16 /min 11/25/2014 3:32pm BP Systolic 122 mmHg BP Diastolic 80 mmHg Height 65 inches 5'5" Weight 164.00 lb BMI (Body Mass Index) 27.3 kg/m2 Heart Rate 72 /min Respiratory Rate 12 /min 07/01/2014 9:53am BP Systolic 126 mmHg BP Diastolic 78 mmHg Height 65 inches 5'5" Weight 155.00 lb BMI (Body Mass Index) 25.8 kg/m2 Heart Rate 80 /min Respiratory Rate 16 /min 06/24/2014 9:23am BP Systolic 126 mmHg BP Diastolic 78 mmHg Height 65 inches 5'5" Weight 155.00 lb BMI (Body Mass Index) 25.8 kg/m2 Heart Rate 80 /min Respiratory Rate 16 /min 06/22/2013 10:04am BP Systolic 124 mmHg BP Diastolic 82 mmHg Height 65 inches 5'5" Weight 150.00 lb BMI (Body Mass Index) 25.0 kg/m2 Heart Rate 72 /min Respiratory Rate 16 /min 02/06/2013 2:16pm BP Systolic 115 mmHg BP Diastolic 68 mmHg Height 65 inches 5'5" Weight 158.00 lb BMI (Body Mass Index) 26.3 kg/m2 Heart Rate 64 /min Body Temperature 97.1 F 01/22/2013 2:24pm BP Systolic 122 mmHg BP Diastolic 68 mmHg Height 65 inches 5'5" Weight 156.00 lb BMI (Body Mass Index) 26.0 kg/m2 Heart Rate 80 /min Respiratory Rate 16 /min 03/18/2012 2:57pm BP Systolic 122 mmHg BP Diastolic 72 mmHg Height 65 inches 5'5" Weight 152.00 lb BMI (Body Mass Index) 25.3 kg/m2 Heart Rate 66 /min Respiratory Rate 12 /min 12/20/2011 3:06pm BP Systolic 120 mmHg BP Diastolic 72 mmHg Height 65 inches 5'5" Weight 151.00 lb BMI (Body Mass Index) 25.1 kg/m2 Heart Rate 78 /min Respiratory Rate 12 /min 09/25/2011 3:22pm BP Systolic 116 mmHg BP Diastolic 66 mmHg Height 65 inches 5'5" Weight 148.00 lb BMI (Body Mass Index) 24.6 kg/m2 Heart Rate 80 /min Respiratory Rate 16 /min 07/04/2011 2:27pm BP Systolic 106 mmHg BP Diastolic 70 mmHg Height 65 inches 5'5" Weight 148.00 lb BMI (Body Mass Index) 24.6 kg/m2 Heart Rate 80 /min Last Menstrual Period 0 Respiratory Rate 12 /min 05/21/2011 3:27pm BP Systolic 130 mmHg BP Diastolic 80 mmHg Height 65 inches 5'5" Weight 148.00 lb BMI (Body Mass Index) 24.6 kg/m2 Heart Rate 84 /min Last Menstrual Period 0 Respiratory Rate 12 /min Results Test Date Facility Test Result H/L Range Note Laboratory test 11/02/2013 [facility] Colon See Note 1 finding And/Or Rectum CBC With Diff 02/06/2013 [facility] WBC 7.4 K/UL (4.1-11.0) [address] [facility] (607)- - RBC 4.32 M/UL (4.00-5.40) HGB 13.9 GM/DL (12.0-16.0) HCT 42.1 % (36.0-47.0) MCV 97.4 FL High (80.0-95.0) MCH 32.3 pg High (27.0-32.0) MCHC 33.1 g/dL (32.0-36.0) RDW 13.2 % (10.5-14.5) PLT 269 K/UL (150-400) MPV 9.3 FL (7.1-10.7) Neut % 48.6 % (35.0-75.0) Lymph % 42.4 % (16.0-52.0) [place] % 7.5 % (0-8.0) Eos % 0.7 % (0-5.0) Baso % 0.8 % (0-4.0) Neut # 3.6 K/UL (1.8-7.7) Lymph # 3.1 K/UL (1.2-4.8) [place] # 0.6 K/UL (0-0.8) Eos # 0.0 K/UL (0-0.5) Baso # 0.1 K/UL (0-0.2) CMP 02/06/2013 [facility] Sodium 142 mmol/L (136-145) [address] (607)- - Potassium 4.6 mmol/L (3.6-5.2) Chloride 105 mmol/L (100-108) Co2 29 mmol/L (22-31) Anion Gap 8 mmol/L (7-16) Urea Nitrogen 13 mg/dL (7-24) Creatinine 0.8 mg/dL (0.6-1.0) BUN/Creat Ratio 16.3 RATIO (10.0-20.0) Glucose 97 mg/dL (70-99) Calcium 9.0 mg/dL (8.4-10.2) Total Protein 7.0 g/dL (6.4-8.2) Albumin 4.2 g/dL (3.5-4.6) Globulin 2.8 g/dL (2.7-4.3) Alb/Glob Ratio 1.5 RATIO Alkaline Phosphatase 50 U/L (50-136) Bilirubin,Total 0.3 mg/dL (0.0-1.0) Ast (Sgot) 19 U/L (11-39) Alt (SGPT) 34 U/L (12-78) GFR 80 ML/MIN/1.73M2 (>59) GFR ( Amer) >90 ML/MIN/1.73M2 (>59) GFR Interpretation <SEE NOTE> 2 Iron Panel 02/06/2013 [facility] Iron,Total @ 89 g/dL (35-150) [address] (607)- - Uibc @ 323 g/dL (130-375) Tibc @ 412 g/dL (250-450) % Saturation 22 % (12-50) Laboratory 02/06/2013 [facility] TSH,Ultrasensitive @ 0.269 Low (0.360- 4.170) test finding [address] mIU/L (607)- - Hemoglobin 02/06/2013 [facility] Hemoglobin A1c @ 5.5 % (4.0-6.0) A1c [address] (607)- - Est Average Glucose 111 mg/dL 3 Lipid 02/06/2013 [facility] Cholesterol @ 208 mg/dL High (0-200) [address] (607)- - Triglyceride @ 88 mg/dL (30-200) HDL Cholesterol @ 90 mg/dL (>40) 4 Chol/HDL Ratio 2.3 RATIO 5 LDL Chol (Calc) 100 mg/dL (<130) 6 Laboratory test finding 12/20/2011 [facility] Sedimentation Rate 1 mm/hr 0 -30 CBC W/Automated Diff 12/20/2011 [facility] White Blood Count 6.7 K/uL 3.1- 10.7 Red Blood Count 4.39 M/uL 3.90-5.40 Hemoglobin 13.5 gm/dL 11.6-15.8 Hematocrit 41.7 % 36.0-46.1 Mean Cell Volume 95.0 fl 80.9-99.0 Mean Corpuscular HGB 30.8 pg 25.9-32.7 Mean Corpuscular HGB Conc 32.4 g/dL 30.8-34.3 Platelet Count 260 K/uL 155-360 Red Cell Distri Width SD 42.5 fl 3-47 Red Cell Distri Width %CV 12.5 % 11.7-14.4 Mean Platelet Volume 11.5 fL 8.9-12.4 Neut% 50.6 % 40.4-72.8 Lymph % 39.0 % 17.0-46.1 [place] % 9.7 % 4.3-13.2 Eo% 0.4 % 0.0-6.6 Bas% 0.3 % 0.0-1.1 Neut# 3.37 K/uL 1.0-7.0 Lymph # 2.60 K/uL 0.8-3.4 [place] # 0.65 K/uL 0.3-0.9 Eos # 0.03 K/uL 0.0-0.5 Baso # 0.02 K/uL 0.0-0.1 Laboratory test finding 12/20/2011 [place] Uric Acid 3.1 mg/dL 2.1-7.4 1 OPERATION/PROCEDURE Colonoscopy DIAGNOSIS: "CECUM, POLYPECTOMY": ADENOMATOUS COLONIC MUCOSA, FRAGMENTED WITH TUBULAR ARCHITECTURE. MELANOSIS COLI. Jose Armando 4 GROSS Received in formalin labeled, "CECAL POLYP" are two pieces of stone, soft tissue measuring up to 0.3 cm. in greatest dimension. Submitted in toto in one block. KELLY/sunny MICROSCOPIC Sections show colonic mucosa with tubular glands lined by columnar cells with elongated and hyperchromatic nuclei. There is a refractile, smiley brown, pigment within the macrophages that populate the lamina propria. PRE OPERATIVE DIAGNOSIS Screening REVIEW CODE CODE: I Signed Electronically signed LUDY GOEL MD 11/04/13 1451 2 NORMAL KIDNEY FUNCTION OR MILD DISEASE - GFR >OR=60 CHRONIC KIDNEY DISEASE - GFR 15 - 59 RENAL FAILURE - GFR <15 Est. GFR calculation based on the MDRD study equation, which assumes a steady state for creatinine. Est. GFR should not be used for medication dosing. 3 HEMOGLOBIN A1c INTERPRETATION: 4.0-6.0% GOOD GLYCEMIC CONTROL 6.1-6.5% AT RISK FOR HYPERGLYCEMIA >6.5% DIABETIC/ POOR GLYCEMIC CONTROL REFERENCE: DIABETES CARE 32(7), 2008 IF A1c RESULT IS INCONSISTENT WITH CLINICAL ESTIMATES OF GLYCEMIC CONTROL, AN INTERFERING Hb VARIANT SHOULD BE CONSIDERED. 4 PER NCEP ATP III GUIDELINES: RESULTS LOWER THAN 40 MG/DL ARE SUGGESTIVE OF INCREASED RISK FOR CORONARY ARTERY DISEASE. RESULTS > OR=TO 60 MG/DL ARE CONSIDERED A NEGATIVE RISK FACTOR. 5 INTERPRETATION OF CHOL-HDL RATIO CHD RISK FEMALE MALE VERY HIGH >8.3 >14.3 HIGH 5.6- 8.3 6.7- 14.3 AVERAGE 3.7- 5.6 4.0- 6.7 BELOW AVERAGE 2.5- 3.7 2.7- 4.0 PROTECTED <2.5 <2.7 6 PER NCEP ATP III GUIDELINES: OPTIMAL < 100 NEAR OPTIMAL 100 - 129 BORDERLINE HIGH 130 - 159 HIGH 160 - 189 VERY HIGH > 189 Procedures Date Code Description Status 11/11/2017 79832 Ear Irrigation Completed 12/17/2014 94811 Tympanometry Completed 07/04/2011 20909 Visual Screening Test Completed 09/20/2010 19042 Destruction Flat Wart,Molluscum Contagiosum, Or Milia Up Completed To 09/05/2010 42209 Ear Irrigation Completed 09/01/2010 92567 Destruction Flat Wart,Molluscum Contagiosum, Or Milia Up Completed To 08/22/2010 29204 Destruction Flat Wart,Molluscum Contagiosum, Or Milia Up Completed To 12/21/2009 16249 Tympanometry Completed 11/03/2009 10155 Destruction Flat Wart,Molluscum Contagiosum, Or Milia Up Completed To 10/27/2009 69737 Destruction Flat Wart,Molluscum Contagiosum, Or Milia Up Completed To 10/18/2009 68150 Destruction Flat Wart,Molluscum Contagiosum, Or Milia Up Completed To 10/11/2009 12833 Destruction Flat Wart,Molluscum Contagiosum, Or Milia Up Completed To 14 Encounters Type Date Location Provider Dx Diagnosis Office Visit 11/11/2017 Ness Salazar 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 with rheumatoid arthritis of [facility] site L20.9 Atopic dermatitis, unspecified J30.9 Allergic rhinitis, unspecified Z80.3 Family history of malignant neoplasm of breast M79.7 Fibromyalgia M15.9 Polyosteoarthritis, unspecified M79.606 Pain in leg, unspecified M54.5 Low back pain N39.46 Mixed incontinence F41.9 Anxiety disorder, unspecified H81.13 Benign paroxysmal vertigo, bilateral J01.40 Acute pansinusitis, unspecified R09.81 Nasal congestion R04.0 Epistaxis Office Visit 11/16/2016 3:45p Aftab Brown [facility] J01.80 Other acute sinusitis B37.3 Candidiasis of vulva and vagina J30.1 Allergic rhinitis due to pollen Office Visit 10/21/2015 9:30a Aftab BrownP 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 of [facility] J30.1 Allergic rhinitis due to pollen F41.9 Anxiety disorder, unspecified R63.5 Abnormal weight gain R14.0 Abdominal distension (gaseous) Z80.3 Family history of malignant neoplasm of breast Office Visit 12/17/2014 2:30p Aftab BrownP 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 of [facility] J30.1 Allergic rhinitis due to pollen J01.80 Other acute sinusitis R05 Cough R50.9 Fever, unspecified Office Visit 11/25/2014 3:45p Aftab Brown HYDRAULIC TECHNICIAN 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 of [facility] site J30.1 Allergic rhinitis due to pollen Office Visit 07/01/2014 9:45a Aftab Brown HYDRAULIC TECHNICIAN 714.0 Rheumatoid Arthritis 724.3 Sciatica 300.00 Anxiety State Unspec 715.90 Osteoarthrosis Unspec Genlzd Or Localized Site Unspec Office Visit 06/24/2014 9:15a Aftab Brown HYDRAULIC TECHNICIAN 714.0 Rheumatoid Arthritis 724.3 Sciatica 599.0 UTI Urinary Tract Infection Site Not Spec Office Visit 06/22/2013 10:00a Kamran Brownroberto SALAZARP 300.00 Anxiety State Unspec Office Visit 02/06/2013 2:15p Mai Salvador Aftab HYDRAULIC TECHNICIAN 386.11 Vertigo Benign Paroxysmal Position Office Visit 01/22/2013 2:30p Mai Salvador Aftab HYDRAULIC TECHNICIAN 729.1 Myalgia & Myositis Unspec 300.00 Anxiety State Unspec 627.2 Menopausal Or Female Climacteric State, Symptomatic 112.1 Candidiasis The Vulva & Vagina Office Visit 03/18/2012 3:00p Kamran Browny HYDRAULIC TECHNICIAN 729.1 Myalgia & Myositis Unspec 300.00 Anxiety State Unspec Office Visit 12/20/2011 3:00p Aftab Brown HYDRAULIC TECHNICIAN 274.9 Gout Unspec Office Visit 09/25/2011 3:30p Mai SalvadorKamranroberto SALAZARP 714.0 Rheumatoid Arthritis 307.40 Sleep Disorder Nonorganic Unspec 627.2 Menopausal Or Female Climacteric State, Symptomatic 729.1 Myalgia & Myositis Unspec Office Visit 07/04/2011 2:30p Ness Salazar, 372.30 Conjunctivitis Unspec M.D. 369.9 Visual Loss Unspec Office Visit 05/21/2011 3:15p Aftab Brown HYDRAULIC TECHNICIAN 627.2 Menopausal Or Female Climacteric State, Symptomatic 780.79 Malaise And Fatigue Other 780.4 Dizziness & Giddiness Office Visit 05/01/2011 10:30a Mai Franco Aftab HYDRAULIC TECHNICIAN 714.0 Rheumatoid Arthritis 307.40 Sleep Disorder Nonorganic Unspec Office Visit 03/05/2011 11:30a Aftab Brown HYDRAULIC TECHNICIAN 847.1 Sprains & Strains Thoracic 307.40 Sleep Disorder Nonorganic Unspec Office Visit 10/13/2010 2:00p Aftab Brown HYDRAULIC TECHNICIAN 788.41 Urinary Frequency Office Visit 10/06/2010 3:15p Aftab Brown HYDRAULIC TECHNICIAN 112.1 Candidiasis The Vulva & Vagina 714.0 Rheumatoid Arthritis 307.40 Sleep Disorder Nonorganic Unspec Office Visit 09/20/2010 11:30a Aftab Brown HYDRAULIC TECHNICIAN 078.10 Viral Warts Unspec 078.10 Viral Warts Unspec 722.52 Intervertebral Disc Degeneration Lumbar 729.1 Myalgia & Myositis Unspec Office Visit 09/12/2010 2:45p Aftab Brown HYDRAULIC TECHNICIAN 112.1 Candidiasis The Vulva & Vagina 714.0 Rheumatoid Arthritis 307.40 Sleep Disorder Nonorganic Unspec Office Visit 09/05/2010 3:00p Afatb Brown HYDRAULIC TECHNICIAN 380.4 Impacted Cerumen 461.8 Sinusitis Acute Other Office Visit 09/01/2010 10:30a Aftab Brown HYDRAULIC TECHNICIAN 078.10 Viral Warts Unspec 714.0 Rheumatoid Arthritis 477.8 Rhinitis Allergic Due To Other Allergen Office Visit 07/13/2010 9:00a Aftab Brown HYDRAULIC TECHNICIAN 714.0 Rheumatoid Arthritis 788.1 Dysuria 788.41 Urinary Frequency 599.70 Hematuria, Unspecified Office Visit 06/16/2010 9:00a Aftab Brown HYDRAULIC TECHNICIAN 477.8 Rhinitis Allergic Due To Other Allergen 782.3 Edema 307.40 Sleep Disorder Nonorganic Unspec Office Visit 05/19/2010 9:30a Aftab Brown HYDRAULIC TECHNICIAN 477.8 Rhinitis Allergic Due To Other Allergen 844.9 Sprains & Strains Knee & Leg Unspec 307.40 Sleep Disorder Nonorganic Unspec Office Visit 05/03/2010 3:00p Ness Salazar M.D. 786.05 Shortness Of Breath 782.3 Edema 780.79 Malaise And Fatigue Other 300.00 Anxiety State Unspec Office Visit 05/01/2010 10:15a Kamran Browny HYDRAULIC TECHNICIAN 782.3 Edema 844.9 Sprains & Strains Knee & Leg Unspec Office Visit 04/21/2010 8:45a Mai Salvador Aftab HYDRAULIC TECHNICIAN 786.2 Cough 465.9 URI Upper Respiratory Infections Acute Unspec Sites 847.1 Sprains & Strains Thoracic Office Visit 04/17/2010 9:15a Aftab Brown HYDRAULIC TECHNICIAN 722.51 Intervertebral Disc Degeneration Thoracic Office Visit 03/24/2010 8:45a Mai Franco Aftab HYDRAULIC TECHNICIAN 401.1 Hypertension Benign 250.00 Diabetes Mellitus W/O Compl Type II Or Unspec Controlled 272.2 Hyperlipidemia Mixed 274.9 Gout Unspec Office Visit 01/30/2010 9:00a Aftab Brown HYDRAULIC TECHNICIAN 722.52 Intervertebral Disc Degeneration Lumbar 715.00 Osteoarthrosis Generalized Site Unspec 846.0 Sprains & Strains Sacroiliac Region Lumbosacral (Joint)(Liga 788.30 Incontinence Urinary Unspec Office Visit 12/27/2009 11:00a Aftab Brown HYDRAULIC TECHNICIAN 307.40 Sleep Disorder Nonorganic Unspec Office Visit 12/21/2009 2:15p Ness Salazar, 382.9 Otitis Media Unspec M.D. 786.2 Cough 478.19 Other Disease Of Nasal Cavity And Sinuses 461.8 Sinusitis Acute Other Office Visit 11/25/2009 11:00a Aftab Brown HYDRAULIC TECHNICIAN 307.40 Sleep Disorder Nonorganic Unspec Office Visit 10/27/2009 1:45p Aftab Brown HYDRAULIC TECHNICIAN 722.51 Intervertebral Disc Degeneration Thoracic 078.10 Viral Warts Unspec Office Visit 10/11/2009 11:45a Aftab BrownP 722.51 Intervertebral Disc Degeneration Thoracic 847.1 Sprains & Strains Thoracic 078.10 Viral Warts Unspec Office Visit 09/26/2009 1:30p Aftab Brown HYDRAULIC TECHNICIAN 307.40 Sleep Disorder Nonorganic Unspec Office Visit 08/26/2009 1:30p Aftab BrownP 307.40 Sleep Disorder Nonorganic Unspec Office Visit 07/26/2009 11:15a Aftab BrownP 722.51 Intervertebral Disc Degeneration Thoracic 307.40 Sleep Disorder Nonorganic Unspec Office Visit 07/05/2009 9:15a Aftab Brown HYDRAULIC TECHNICIAN 847.1 Sprains & Strains Thoracic Office Visit 06/30/2009 9:45a Aftab Brown HYDRAULIC TECHNICIAN 847.1 Sprains & Strains Thoracic 847.0 Sprains & Strains Neck 307.40 Sleep Disorder Nonorganic Unspec Office Visit 06/27/2009 12:00p Aftab Brown HYDRAULIC TECHNICIAN 307.40 Sleep Disorder Nonorganic Unspec Plan of Treatment 11/11/2017 - Ness Perera M.D.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 of unspecifiedComments:EXERCISE/HEAT/MESSAGE F/U WITH REUHMATOLOGY COUNCELLING AND XXORDJFDTPGS48.9 Atopic dermatitis, unspecifiedComments:SKIN CARE INSTRUCTIONS LOTION OR BABY OIL 2-3 APPLICATION PER DAYUSE MOISTURIZING SOAPAVOID PROLONGED WATER EXPOSUREAVOID USING HOT WATER IN OEKRTXA20.9 Allergic rhinitis, unspecifiedComments:INCREASE PO FLUID USE ANTIHISTAMINE PRN SECOND HAND SMOKING IQCCMBNTIC23.3 Family history of malignant neoplasm of breastComments:MAMMOGRAM FRBFZIJ34.7 FibromyalgiaComments:EXERCISE/HEAT/ MESSAGETYLENOL OR MOTRIN PRNF/U WITH REHUMATOLOGY PRNDUR TXWFPMZB49.9 Polyosteoarthritis, unspecifiedComments:EXERCISE/HEAT/MESSAGETYLENOL OR MOTRIN PRNAVOID HEAVY LIFTINGWT LOSS DUR QGYVTLBW37.606 Pain in leg, unspecifiedComments:TYLENOL OR MOTRIN PRN EXERCISE/HEAT/MESSAGE DUR PHSFJFXF56.5 Low back painComments:EXERCISE/HEAT /MESSAGEAVOID HEAVY LIFTING WT LOSSTYLENOL OR MOTRIN PRN DUR THZZGTQC88.46 Mixed incontinenceComments: COUNCELED SKIN CARE INSTRUCTIONSUSE DIAPER PRNF41.9 Anxiety disorder, unspecifiedComments:COUNCELLING AND REASSURANCE RELAXATION TECHNIQUES DISCUSSEDCOUNSELED RE: STRESSORS IN LIFE AVOID ALLENERGY/HIGH CAFFEINE OTCZZGR90.13 Benign paroxysmal vertigo, bilateralComments:LCJDCVQ08.81 Nasal congestionComments:INCREASE PO FLUIDTYLENOL OR MOTRIN PRNREST USE ANTIHISTAMINE PRNR04.0 EpistaxisComments:NOSTRIL CARE INSTRUCTIONS APPLY VASELINE TO B/L NOSTRILS TID /PRNH61.21 Impacted cerumen, right earComments:WAX IRRIGATION DONE EAR HYGEINE DISSCUSED APPLY BABY OIL TO BOTH EARS Q HS AND RTC FOR SFFEKSHOVTL43.45 Other chronic allergic conjunctivitisComments:EYE CARE INSTRUCTIONS
--- OUTSIDE RECORDS SUMMARY | 2017-11-12 09:29 | XMS REPORT | Continuity of Care Document ---
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 Generalized osteoarthritis Other retirement (current) drug therapy Other terminal worker (current) drug therapy 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 Other terminal worker (current) drug therapy Generalized 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 Generalized osteoarthritis Other retirement (current) drug therapy 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 Generalized osteoarthritis Other terminal worker (current) drug therapy Fatigue 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 Generalized osteoarthritis Other terminal worker (current) drug therapy 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 Other terminal worker (current) drug therapy 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 Generalized osteoarthritis Other retirement (current) drug therapy 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 Other terminal worker (current) drug therapy Generalized 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 Other retirement (current) drug therapy 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 The mapped diagnosis code was Rheumatoid Arthritis, 714.0, added by Roopa Hardwick, with responsible provider Roopa RIVERA. Onset date 10/17/2011; last addressed on 12/16/2013. High risk drug monitoring - Active Mapped from [facility] status Chronic Conditions table on 06/28/2014 by the ICD9 to MENA360OMED Bulk Mapping Utility. 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, [address] [place], [place], [place], [id number], [place], . [id number], tel:[phone] [place] [phone] tel:[phone] Arthritis Arthritis RA w/o Escobar-0 McIlvain Specialist: Health Health rheumatoid 9-201 LINNETTE Blas. Reena [facility] factor of 8 5794 [facility], 5794 [facility] [address] [facility] sitesOther [facility], [place], terminal worker [place], [place], [place], ([place]) [place], [address]. [place], therapyGeneral [id number], tel:[phone], ized [place]. [id number] [place] osteoarthritis tel:[phone] lting tel:[phone] Provider: Rolo Norris MD, [address] [facility] [address], [place], [address]. tel:[phone] ring Provider: Ness Perera MD, [address] [place] [address], [address]. tel:[phone] Arthritis Arthritis Augusto-0 McIlvain [facility] Health 6-201 LINNETTE Blas. [facility] 8 5794 PLLC, [address] [facility], [place], [place], [place], [place], [id number], [id number], [place]. [place] tel:[phone] tel:[phone] Arthritis Arthritis RA w/o Apr-3 McIlvain Specialist: Health Health rheumatoid 0-201 LINNETTE Blas. Reena [facility] factor of 8 5794 [facility], 5794 [facility] [address] [facility] sitesOther [facility], [place], terminal worker [place], [place], [place], (current) [place], [address]. [place], therapyGeneral [id number], tel:[phone], ized [place]. [id number] [place] osteoarthritis tel:[phone] lting tel:[phone] Provider: [id number] Norris MD, [address] [facility] [address], [place], [address]. tel:[phone] [facility] Provider: Ness Perera MD, [address] [place], [address]. tel:[phone] Arthritis Arthritis RA w/o McIlvain Specialist: Health Health rheumatoid 3-201 LINNETTE Blas. Reena Jean [facility] Associates factor of 8 5794 Jerich[facility], 5794 PLLC multiple [facility] [address] [facility] sitesGeneraliz [facility] [place], ed [place], [place], [place], [place], [address]. [place], Other long [id number], tel:[phone], term (current) [place]. [id number] [place] drug therapy tel:[phone] lting tel:[phone] Provider: [id number] Charles Norris MD, [address] [facility] [address], [place], [address]. tel:[phone] ring Provider: Ness Perera MD, [address] [place], [address]. tel:[phone] Arthritis Arthritis Other long Cliff-0 [facility] Health term (current) 8 LINNETTE Blas. [facility] Associates drug therapyRA 8 5794 PLLC, 5794 PLLC w/o rheumatoid [facility] factor of [place], multiple sites [place], [place], [place], [id number], [id number], [place]. [place] tel:[phone] tel:[phone] Arthritis Arthritis RA w/o McIlvain Specialist: Health Health rheumatoid 8-201 LINNETTE Blas. Reena [facility] factor of 7 5794 [facility], 5794 PLLC multiple [facility] [address] [facility] sitesOther [place], ., [place], retirement [place], [place], [place], (current) [place], [address]. [place], therapyGeneral [id number], tel:[phone], ized [place]. [address]Pwnsx [place] osteoarthritis tel:[phone] lting tel:[phone] Provider: [id number] Charles Norris MD, [address] [place] [address], [place], [address]. tel:[phone] ring Provider: Ness Perera MD, [address] [place] [address], [address]. tel:[phone] Arthritis Arthritis RA w/o Nov- McIlvain Specialist: [facility] rheumatoid 6-201 LINNETTE Blas. [facility] Associates factor of 7 5794 Jer[facility], 5794 [facility] [address] [facility] sitesGeneraliz [place], ., [place], ed [place], [place], [place], [place], [address]. [place], Other long [id number], tel:[phone], term (current) [place]. [id number] [place] drug therapy tel:[phone] lting tel:[phone] Provider: [id number] Norris MD, [address] [address], [place], [address]. tel:[phone] ring Provider: Ness Perera MD, [address] [place] [address], [address]. tel:[phone] Arthritis Arthritis RA w/o Warnocacz Specialist: [facility] rheumatoid 7-201 MD Stevenson. [facility] Associates factor of 7 5794 Jer[facility], 5794 [facility] [address] [facility] [place], [place], [place], [place], [place], [address]. [place], [id number], tel:[phone], [place]. [address]Gqbxh [place] tel:[phone] lting tel:[phone] Provider: [id number] Norris MD, [address] [facility] [address], [place], [address]. tel:[phone] ring Provider: Ness Preera MD, [address] [place], [address]. tel:[phone] Arthritis Arthritis RA w/o June-2 McIlvain Specialist: Health Health rheumatoid 2-201 LINNETTE Blas. Reena Jean [facility] Associates factor of 7 5794 [facility], 5794 [facility] [address] [facility], [place], ed [place], [place], [place], [place], [address]. [place], Other long [id number], tel:[phone], term (current) [place]. [id number] [place] drug tel:[phone] lting tel:[phone] therapyFatigue [id number] Provider: Rolo Norris, [address] [address], [place], [address]. tel:[phone] ring Provider: Ness Perera MD, [address] [place], [address]. tel:[phone] Arthritis Arthritis RA w/o Apr-2 McIlvain Specialist: Health [facility] rheumatoid 7-201 LINNETTE Blas. Re[facility] Associates factor of 7 5794 [facility], 5794 [facility] [address] [facility], [place], ed [place], [place], [place], [place], [address]. [place], Other long [id number], tel:[phone], term (current) [place]. [address]Nzkxj [place] drug therapy tel:[phone] lting tel:[phone] Provider: [id number] Charles Norris, [address] [facility] [address], [place], [address]. tel:[phone] ring Provider: Ness Perera MD, [address] [place], [address]. tel:[phone] Arthritis Arthritis RA w/o Cliff-0 McIlvain Specialist: Health Health rheumatoid 5-201 LINNETTE Blas. [facility] factor of 7 5794 [facility], 5794 PLLMulu multiple [facility] [address] [facility] sitesOther [facility]., [place], retirement [place], [place], [place], (current) [place], [address]. [place], therapy [id number], tel:[phone], [place]. [id number] [place] tel:[phone] lting tel:[phone] Provider: [id number] Charles Norris, [address] [facility] [address], [place], [address]. tel:[phone] [facility] Provider: Ness Perera MD, [address] [place] [address], [address]. tel:[phone] Arthritis Arthritis RA w/o Nov- McIlvain Specialist: [facility] rheumatoid 8-201 LINNETTE Blas. Reena Br[facility] Associates factor of 6 5794 [facility], 5794 [facility] [address] [facility] sitesGeneraliz [facility]., [place], ed [place], [place], [place], [place], [address]. [place], Other long [id number], tel:[phone], term (current) [place]. [id number] drug therapy tel:[phone] lting tel:[phone] Provider: [id number] Norris, [address] [facility] [address], [place], [address]. tel:[phone] [facility] Provider: Ness Perera MD, [address] [place], [address]. tel:[phone] Arthritis Arthritis RA w/o Sep-2 McIlvain Specialist: [facility] rheumatoid 4-201 LINNETTE Blas. Reena Br[facility] Associates factor of 6 5794 Jer[facility], 5794 PLLC multiple [facility] [address] [facility] sitesOther [facility]., [place], retirement [place], [place], [place], (current) [place], [address]. [place], therapyGeneral [id number], tel:[phone], ized [place]. 824291Cdxwy [place] osteoarthritis tel:[phone] lting tel:[phone] Provider: [id number] Charles Norris, [address] [facility] [address], [place], [address]. tel:[phone] ring Provider: Ness Perera MD, [address] [place], [address]. tel:[phone] Arthritis Arthritis RA w/o Augusto-2 McIlvain Specialist: [facility] rheumatoid 4-201 LINNETTE Blas. Reena Jean [facility] Associates factor of 6 5794 Jer[facility], 5794 [facility] [address] [facility] sitesOther [facility], [place], terminal worker [place], [place], [place], (current) [place], [address]. [place], therapy [id number], tel:[phone], [place]. [address]Ophjg [place] tel:[phone] lting tel:[phone] Provider: [id number] Norris, [address] [facility] [address], [place], [address]. tel:[phone] ring Provider: Ness Perera MD, [address] [place] [address], [address]. tel:[phone] Arthritis Arthritis RA w/o Apr-2 McIlvain Specialist: [facility] rheumatoid 2-201 LINNETTE Blas. [facility] Associates Associates factor of 6 5794 Jerich[facility], [address] [facility] [address] [facility] sitesOther [facility], [place], terminal worker [place], [place], [place], (current) [place], [address]. [place], therapyPlantar [id number], tel:[phone], fasciitis [place]. [id number] [place] tel:[phone] lting tel:[phone] Provider: [id number] Norris, [address] [facility] [address], [place], [address]. tel:[phone] ring Provider: Ness Perera MD, [address] [place], [address]. tel:[phone] Arthritis Arthritis RA w/o Mar-2 McIlvain Specialist: Health Health rheumatoid 6-201 LINNETTE Blas. [facility] Associates factor of 6 5794 Jerich[facility]AR[facility], 5794 [facility] [address] [facility] sitesOther [facility], [place], terminal worker [place], [place], [place], (current) [place], [address]. [place], [place] [id number], tel:[phone], [place]. 118[address]Qkebh [place] tel:[phone] lting tel:[phone] Provider: Rolo Norris, [address] [address], [place], [address]. tel:[phone] ring Provider: Ness Perera MD, [address] [place], [address]. tel:[phone] Arthritis Arthritis RA w/o Cliff-0 McIlvain Specialist: [facility] rheumatoid 6-201 LINNETTE Blas. [facility] Associates factor of 6 5794 Jer[facility], 5794 [facility] [address] [facility] sitesOther [facility], [place], terminal worker [place], [place], [place], (current) [place], [address]. [place], therapy [id number], tel:[phone], [place]. [address]Kzngk [place] tel:[phone] lting tel:[phone] Provider: [id number] Charles Norris, [address] [address], [place], [address]. tel:[phone] ring Provider: Ness Perera MD, [address] [place], [address]. tel:[phone] Arthritis Arthritis RA w/o Nov- McIlvain Specialist: Health [facility] rheumatoid 8-201 LINNETTE Blas. [facility] Associates factor of 5 5794 Jericho SALAZAR[facility], [address] [facility] [address] [facility] sitesOther [place], [facility], [place], retirement [place], [place], [place], (current) [place], [address]. [place], therapyAcute [id number], tel:[phone], [facility] [place]. [id number] [place] respiratory tel:[phone] lting tel:[phone] infection, [phone] Provider: [id number] unspecified Charles Norris, [address] [facility] [address], [place], [address]. tel:[phone] ring Provider: Ness Perera MD, [address] [place] [address], [address]. tel:[phone] Arthritis Arthritis Oct [facility] 4 LINNETTE Stephens. Provider: Associates [facility] 2 5794 [facility], 5794 PLLC [facility], [facility], [place], [place], Hospital [place], [id number], b [place] 4 [id number], [place]. [place], [place] tel:[phone] [place], tel:[phone] [place], [address]. 8015[address] tel:[phone] lting Provider: Charles Norris, [address] [address], [place], [address]. tel:[phone] ring Provider: Ness Perera MD, [address] [place], [address]. tel:[phone] Arthritis Arthritis [facility] 9 MD [place]. Provider: Associates [facility] 1 5794 Ness Perera [facility], 5794 [facility] Cherise SALAZAR, [address] [place] [address], [facility], [place], [place], [place], [place], [address]. [place], [id number], tel:[phone], [place]. [id number] [place] tel:[phone] tel:[phone] 550111 Family History Family Member Diagnosis Age At Onset Sister Immunizations Vaccine Date Status Comments Never had administered Source: Source Unspecified Never had administered Source: Source Unspecified Payers Payer name Insurance type Covered constitution party ID Authorization(s) Destiny [id number] Social History Type Description Quantity Date Captured Comments Sex Female Vital Signs Date / Height [...]
--- OUTSIDE RECORDS SUMMARY | 2017-11-12 09:29 | XMS REPORT | Continuity of Care Document ---
:1960 Author Organization [facility] Address [address], [place] [id number] Phone Care Team Providers Name Role Phone [...] w/o rheumatoid factor of multiple sites Other custodial (current) drug therapy Generalized 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 Other custodial (current) drug therapy Generalized 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 Generalized osteoarthritis Other custodial (current) drug therapy Other terminal superintendent (current) drug therapy 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 Other terminal superintendent (current) drug therapy Generalized 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 Generalized osteoarthritis Other custodial (current) drug therapy 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 Generalized osteoarthritis Other terminal superintendent (current) drug therapy Fatigue 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 Generalized osteoarthritis Other terminal superintendent (current) drug therapy 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 Other terminal superintendent (current) drug therapy 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 Generalized osteoarthritis Other custodial (current) drug therapy 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 Other terminal superintendent (current) drug therapy Generalized 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 Other custodial (current) drug therapy 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 Other custodial (current) drug therapy Plantar fasciitis 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 Other custodial (current) drug therapy 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 Other terminal superintendent (current) drug therapy 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 Other terminal superintendent (current) drug therapy Acute upper respiratory infection, unspecified Rheumatoid arthritis - Active Mapped from [facility] Chronic Conditions table on 04/27/2014 by the ICD9 to [employer] Bulk Mapping Utility. The mapped diagnosis code was Rheumatoid Arthritis, 714.0, added by Roopa Hardwick, with responsible provider Roopa RIVERA. Onset date 10/17/2011; last addressed on 12/16/2013. High risk drug monitoring - Active Mapped from [facility] status Chronic Conditions table on 06/28/2014 by the ICD9 to [employer] Education[employer] Bulk Mapping Utility. The mapped diagnosis code was penitentiary use of medication, V58.69, added by Roopa [...] Visit Copied on Encounter Arthritis Arthritis Astrid [employer]-C Daegis 3-[address], [address] [place], [place], [place], [id number], [place], . [id number], tel:[phone] [place] [phone] tel:[phone] Arthritis Arthritis RA w/o Escobar-0 McIlvain Specialist: Health Health rheumatoid 9-201 LINNETTE Blas. Reena [facility] factor of 8 5794 [facility], 5[address] [facility] [address] [facility] sitesOther [facility], [place], terminal superintendent [place], [place], [place], (current) [place], [address]. [place], therapyGeneral [id number], tel:[phone], ized [place]. [id number] [place] osteoarthritis tel:[phone] lting tel:[phone] Provider: Rolo Norris MD, [address] [facility] [address], [place], [address]. tel:[phone] ring Provider: Ness Perera MD, [address] [place] [address], [address]. tel:[phone] Arthritis Arthritis Augusto-0 McIlvain [facility] Health 6-201 LINNETTE Blas. [facility] 8 5794 PLLC, 5794 PLLC [facility], [place], [place], [place], [id number], [id number], [place]. [place] tel:[phone] tel:[phone] Arthritis Arthritis RA w/o Apr-3 McIlvain Specialist: Health Health rheumatoid 0-201 LINNETTE Blas. [facility] factor of 8 5794 [facility], [address] [facility] [address] [facility] sitesOther [facility], [place], terminal superintendent [place], [place], [place], ([place]) [place], [address]. [place], therapyGeneral [id number], tel:[phone], ized [place]. [id number] [place] osteoarthritis tel:[phone] lting tel:[phone] Provider: [id number] Norris MD, [address] [facility] [address], [place], [address]. tel:[phone] Provider: Ness Perera MD, [address] [place], [address]. tel:[phone] Arthritis Arthritis RA w/o McIlvain Specialist: Health Health rheumatoid 3-201 LINNETTE Blas. Reena Jean [facility] Associates factor of 8 5794 Jer[facility], 5794 PLLC multiple [facility] [address] [facility] sitesGeneraliz [facility]., [place], ed [place], [place], [place], [place], [address]. [place], Other long [id number], tel:[phone], term (current) [place]. [id number] [place] drug therapy tel:[phone] lting tel:[phone] Provider: [id number] Charles Norris MD, [address] [facility] [address], [place], [address]. tel:[phone] ring Provider: Ness Perera MD, [address] [place], [address]. tel:[phone] Arthritis Arthritis Other long Cliff-0 [facility] term (current) 8 LINNETTE Blas. [facility] drug therapyRA 8 5794 PLLC, 5794 PLLC w/o rheumatoid [facility] factor of [place], [place], multiple sites [place], [place], [id number], [id number], [place]. [place] tel:[phone] tel:[phone] Arthritis Arthritis RA w/o McIlvain Specialist: Health Health rheumatoid 8-201 LINNETTE Blas. [facility] factor of 7 5794 [facility], 5794 PLLC multiple [facility] [address] [facility] sitesOther [place], ., [place], custodial [place], [place], [place], (current) [place], [address]. [place], therapyGeneral [id number], tel:[phone], ized [place]. [id number] [place] osteoarthritis tel:[phone] lting tel:[phone] Provider: [id number] Charles Norris MD, [address] [place] [address], [place], [address]. tel:[phone] ring Provider: Ness Perera MD, [address] [place] [address], [address]. tel:[phone] Arthritis Arthritis RA w/o Nov- McIlvain Specialist: [facility] rheumatoid 6-201 LINNETTE Blas. [facility] Associates factor of 7 5794 [facility], 5[address] [facility] [address] [facility] sitesGeneraliz [place], ., [place], ed [place], [place], [place], [place], [address]. [place], Other long [id number], tel:[phone], term (current) [place]. [id number] [place] drug therapy tel:[phone] lting tel:[phone] Provider: [id number] Norris MD, [address] [address], [place], [address]. tel:[phone] ring Provider: Ness Perera MD, [address] [place] [address], [address]. tel:[phone] Arthritis Arthritis RA w/o Warnowycz Specialist: [facility] rheumatoid 7-[address] [facility] Associates factor of 7 5794 Jer[facility], 5[address] [facility] [address] [facility] [place], [place], [place], [place], [address]. [place], [id number], tel:[phone], [place]. [id number] [place] tel:[phone] lting tel:[phone] Provider: [id number] Norris MD, [address] [facility] [address], [place], [address]. tel:[phone] ring Provider: Ness Perera MD, [address] [place], [address]. tel:[phone] Arthritis Arthritis RA w/o June-2 McIlvain Specialist: Health Health rheumatoid 2-201 LINNETTE Blas. Reena [facility] factor of 7 5794 Jer[facility], 5794 [facility] [address] [facility], [place], ed [place], [place], [place], [place], [address]. [place], Other long [id number], tel:[phone], term (current) [place]. [id number] [place] drug tel:[phone] lting tel:[phone] therapyFatigue [id number] Provider: Rolo Norris, [address] [address], [place], [address]. tel:[phone] ring Provider: Ness Perera MD, [address] [place], [address]. tel:[phone] Arthritis Arthritis RA w/o Apr-2 McIlvain Specialist: Health [facility] rheumatoid 7-201 LINNETTE Blas. Reena [facility] factor of 7 5794 [facility], 5[address] [facility] [address] [facility], [place], ed [place], [place], [place], [place], [address]. [place], Other long [id number], tel:[phone], term (current) [place]. [id number] [place] drug therapy tel:[phone] lting tel:[phone] Provider: [id number] Charles Norris, [address] [facility] [address], [place], [address]. tel:[phone] ring Provider: Ness Perera MD, [address] [place], [address]. tel:[phone] Arthritis Arthritis RA w/o Cliff-0 McIlvain Specialist: Health Health rheumatoid 5-201 LINNETTE Blas. [facility] factor of 7 5794 [facility], 5794 PLLMulu multiple [facility] [address] [facility] sitesOther [facility]., [place], custodial [place], [place], [place], (current) [place], [address]. [place], therapy [id number], tel:[phone], [place]. [id number] [place] tel:[phone] lting tel:[phone] Provider: [id number] Charles Norris, [address] [facility] [address], [place], [address]. tel:[phone] Provider: Ness Perera MD, [address] [place] [address], [address]. tel:[phone] Arthritis Arthritis RA w/o Nov- McIlvain Specialist: [facility] rheumatoid 8-201 LINNETTE Blas. Reena [facility] factor of 6 5794 Jer[facility], 5794 [facility] [address] [facility] sitesGeneraliz [facility]., [place], ed [place], [place], [place], [place], [address]. [place], Other long [id number], tel:[phone], term (current) [place]. [id number] drug therapy tel:[phone] lting tel:[phone] Provider: [id number] Norris, [address] [facility] [address], [place], [address]. tel:[phone] Provider: Ness Perera MD, [address] [place], [address]. tel:[phone] Arthritis Arthritis RA w/o Sep-2 McIlvain Specialist: [facility] rheumatoid 4-201 LINNETTE Blas. Reena [facility] factor of 6 5794 Jer[facility], 5794 PLLC multiple [facility] [address] [facility] sitesOther [facility]., [place], custodial [place], [place], [place], (current) [place], [address]. [place], therapyGeneral [id number], tel:[phone], ized [place]. [id number] [place] osteoarthritis tel:[phone] lting tel:[phone] Provider: [id number] Charles Norris, [address] [facility] [address], [place], [address]. tel:[phone] ring Provider: Ness Perera MD, [address] [place], [address]. tel:[phone] Arthritis Arthritis RA w/o Augusto-2 McIlvain Specialist: [facility] rheumatoid 4-201 LINNETTE Blas. Reena Jean [facility] Associates factor of 6 5794 Jer[facility] SALAZ[facility], 5794 [facility] [address] [facility] sitesOther [facility], [place], terminal superintendent [place], [place], [place], (current) [place], [address]. [place], therapy [id number], tel:[phone], [place]. [id number] [place] tel:[phone] lting tel:[phone] Provider: [id number] Norris, [address] [facility] [address], [place], [address]. tel:[phone] ring Provider: Ness Perera MD, [address] [place] [address], [address]. tel:[phone] Arthritis Arthritis RA w/o Apr-2 McIlvain Specialist: [facility] rheumatoid 2-[address] [facility] Associates factor of 6 5794 Jericho SALAZAR, [facility]C, 5794 PLLC [facility] [address] [facility] sitesOther [facility], [place], terminal superintendent [place], [place], [place], (current) [place], [address]. [place], therapyPlantar [id number], tel:[phone], fasciitis [place]. [id number] [place] tel:[phone] lting tel:[phone] Provider: [id number] Norris, [address] [facility] [address], [place], [address]. tel:[phone] ring Provider: Ness Perera MD, [address] [place], [address]. tel:[phone] Arthritis Arthritis RA w/o Mar-2 McIlvain Specialist: Health Health rheumatoid 6-201 LINNETTE Blas. [facility] Associates factor of 6 5794 Jer[facility]AR[facility], 5794 [facility] [address] [facility] sitesOther [facility], [place], terminal superintendent [place], [place], [place], (current) [place], [address]. [place], therapy [id number], tel:[phone], [place]. [id number] [place] tel:[phone] lting tel:[phone] Provider: Rolo Norris, [address] [address], [place], [address]. tel:[phone] ring Provider: Ness Perera MD, [address] [place], [address]. tel:[phone] Arthritis Arthritis RA w/o Cliff-0 McIlvain Specialist: [facility] rheumatoid 6-201 LINNETTE Blas. [facility] Associates factor of 6 5794 Jer[facility]o [facility]AZAR[facility], 5794 [facility] [address] [facility] sitesOther [facility], [place], terminal superintendent [place], [place], [place], (current) [place], [address]. [place], therapy [id number], tel:[phone], [place]. [id number] [place] tel:[phone] lting tel:[phone] Provider: [id number] Charles Norris, [address] [address], [place], [address]. tel:[phone] ring Provider: Ness Perera MD, [address] [place], [address]. tel:[phone] Arthritis Arthritis RA w/o Nov- McIlvain Specialist: Health [facility] rheumatoid 8-201 LINNETTE Blas. [facility] Associates factor of 5 5794 Jerich[facility] SALAZAR[facility], 5794 PLLC [facility] [address] [facility] sitesOther [place], [facility], [place], custodial [place], [place], [place], (current) [place], [address]. [place], therapyAcute [id number], tel:[phone], [facility] [place]. [id number] [place] respiratory tel:[phone] lting tel:[phone] infection, [phone] Provider: [id number] unspecified Charles Norris, [address] [facility] [address], [place], [address]. tel:[phone] ring Provider: Ness Perera MD, [address] [place] [address], [address]. tel:[phone] Arthritis Arthritis Oct [facility] 4 LINNETTE Stephens. Provider: Associates Associates 2 5794 A[facility], [address] [facility], [facility], [place], [place], Hospital [place], [id number], b Rober 4 [id number], [place]. K, [place] tel:[phone] [place], tel:[phone] [place], [address]. [address] tel:[phone] lting Provider: Charles Norris, [address] [address], [place], [address]. tel:[phone] ring Provider: Ness Perera MD, [address] [place], [address]. tel:[phone] [facility] 9 MD [place]. Provider: Associates [facility] 1 5794 Ness Perera [facility], 5794 [facility] Cherise SALAZAR, [address] [place] [address], [facility], [place], [place], [place], [place], [address]. [place], [id number], tel:[phone], [place]. [id number] [place] tel:[phone] tel:[phone] 440210 Family History Family Member Diagnosis Age At Onset Sister Immunizations Vaccine Date Status Comments Never had administered Source: Source Unspecified Never had administered Source: Source Unspecified Payers Payer name Insurance type Covered constitution party ID Authorization(s) Destiny [id number] Social History Type Description Quantity Date Captured [...]
[2017-11-12 09:34] VITALS: BP 128/87
--- NOTE | 2017-11-12 10:17 | UC ---
Ear Complaint HPI - HPI Summary HPI Summary: 57-year-old female presents with complaints of right ear fullness, discomfort, and decreased hearing. States the ear fullness and present for a couple of weeks. She was seen by her primary care provider yesterday who attempted to flush cerumen impaction. Pain in the ear became during the irrigation and therefore the irrigation was terminated it was recommended that she go home and use mineral oil. States she is here today because she has continued difficulty hearing and pain in that ear. Denies fever, chills, ear drainage, or URI symptoms. - History of Current Complaint Chief Complaint: UCEar Stated Complaint: RIGHT EAR COMPLAINT Time Seen by Provider: 11/12/17 10:03 Hx Obtained From: Patient ?: No Onset/Duration: Gradual Onset, Lasting Weeks - 2 Severity Initially: Mild Severity Currently: Moderate Pain Intensity: 7 Aggravating Factors: Nothing Alleviating Factors: Nothing Associated Signs/Symptoms: Positive: Hearing Loss. Negative: Discharge, Trauma to Ear, URI Symptoms Related History: Seasonal Allergies - Allergies/Home Medications Allergies/Adverse Reactions: Allergies Allergy/AdvReac Type Severity Reaction Status Date / Time No Known Allergies Allergy Verified 04/04/16 18:51 Home Medications: Home Medications Cetirizine HCl/Pseudoephedrine [Zyrtec-D Tablet] 1 each PO DAILY 11/12/17 [ History Confirmed 11/12/17] PMH/Surg Hx/FS Hx/Imm Hx - Additional Past Medical History Additional PMH: Rheumatoid arthritis, environmental allergies, overactive bladder Previously Healthy: Yes - Surgical History Surgical History: Yes Surgery Procedure, Year, and Place: ablation - Family History Known Family History: Positive: Hypertension - Social History Occupation: Employed Full-time Lives: With Family Alcohol Use: None Substance Use Type: None Smoking Status (MU): Former Smoker Have You Smoked in the Last Year: No When Did the Patient Quit Smoking/Using Tobacco: 34 years ago Review of Systems Constitutional: Negative Skin: Negative Eyes: Negative ENT: Ear Ache Respiratory: Negative Cardiovascular: Negative Is Patient Immunocompromised?: No All Other Systems Reviewed And Are Negative: Yes Physical Exam Triage Information Reviewed: Yes Appearance: Well-Appearing, No Pain Distress, Well-Nourished Vital Signs: Initial Vital Signs Temp 97.7 F 11/12/17 09:26 Pulse 82 11/12/17 09:26 Resp 16 11/12/17 09:26 BP 128/87 11/12/17 09:26 Pulse Ox 97 11/12/17 09:26 Vital Signs Reviewed: Yes Eyes: Positive: Conjunctiva Clear. Negative: Discharge ENT: Positive: Pharynx normal, Uvula midline, Other - Left TM intact, opaque, with good cone of light. Right ear canal with cerumen impaction. Unabe to visualize TM.. Negative: Nasal congestion, Nasal drainage, Sinus tenderness Neck: Positive: Supple, Nontender, No Lymphadenopathy Respiratory: Positive: Lungs clear, Normal breath sounds, No respiratory distress Cardiovascular: Positive: RRR, No Murmur Neurological: Positive: Alert Skin Exam: Normal Procedures - Procedure Summary Procedure Summary: Moderate amount of soft cerumen was removed from the right ear canal using a lighted curette. Second large piece of hard cerumen mixed with squamous tissue removed using alligator forceps. Post-removal there remained a significant amount hard cerumen deep within the ear canal. TM not visualized. Right ear was then irrigated by RN and a large amount of hard cerumen was removed. Patient was complaining of some discomfort therefore irrigation was discontinued. Post- irrigation there was a small amount of hard cerumen mixed with squamous debris deep within the anterior part of the canal. I was able to partially visualize the TM which appeared intact and non-erythematous. The ear canal itself was erythematous and excoriated. No drainage or bleeding was noted. Ear Complaint Course/Dx - Course Course Of Treatment: 57 year old female with several week history of right ear fullness. Seen by PCP for right cerumen impaction and attempted to flush but stopped prior to full removal d/t pain. Able to remove majority of remaining impaction with combination of physical removal and additional flushing however patient began to complain of discomfort so efforts were stopped. Small amount remained in the distal, anterior external auditory canal but was able to partially visualize an intact TM. There was erythema and excoriation of the ear canal so patient was prescribed course of Ciprodex ear drops and is to follow up with her PCP in 5 days for recheck. - Differential Dx/Diagnosis Differential Diagnosis/HQI/PQRI: Cerumen Impaction, Otitis Externa, Otitis Media Provider Diagnoses: Cerumen impaction Discharge - Sign-Out/Discharge Documenting (check all that apply): Patient Departure All imaging exams completed and their final reports reviewed: No Studies - Discharge Plan Condition: Stable Disposition: HOME Prescriptions: Ciproflox/Dexameth OTIC.SUSP* [Ciprodex OTIC.SUSP*] 4 drop .SEE ORDER BID 5 Days #1 btl Patient Education Materials: Cerumen Impaction (ED) Referrals: Ness Perera MD [Primary Care Provider] - 5 Days Additional Instructions: Use Ciprodex 4 drops into the affected ear twice daily for 5 days. Avoid getting water into the ear. Do not place anything in the ear attempt to clean the ear with Q-tips as this can push the wax deeper into the ear canal. Follow-up with her primary care provider in 5 days for recheck of the ear. Seek immediate medical attention if you develop any fever, increased pain, drainage or bleeding from the ear. - Billing Disposition and Condition Condition: STABLE Disposition: Home
== END 2017-11-12 10:45 | disposition home or self-care (01) ==
LOC: UCCORT 09:10
DX: H61.21 Impacted cerumen, right ear (principal); Z87.891 Personal history of nicotine dependence
CPT/HCPCS: 69210; 99212; 99213; G0463